=== PATIENT | male | born 1975 | race Caucasian/White ===

== ENCOUNTER 2017-09-30 11:53 | Emergency (ER) | payer SELFPAY ==
[~2017-09-30 11:53] MED LIST: CYCL-36 PO; IBUP800 PO
[2017-09-30 12:03] VITALS: PULSE 107
[2017-09-30] MEDS ORDERED: MORPHINE SULFATE 4 MG/ML INJ ONE (12:09)
[2017-09-30] MEDS ORDERED: MORPHINE SULFATE 4 MG/ML INJ IV PUSH ONE (12:15)
[2017-09-30 12:21] VITALS: BP 170/99; PULSE 118; RESP 28; TEMP 98.4; O2SAT 97
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
[2017-09-30] MEDS ORDERED: ACETAMINOPHEN/HYDROcodone 325 MG/5 MG TAB PO ONE (14:00)
[2017-09-30] MEDS ORDERED: REME45TA PO (14:02)
[2017-09-30] MEDS ORDERED: BUSP10TA PO (14:02)
[2017-09-30] MEDS ORDERED: GABA300C5 PO (14:02)
[2017-09-30] MEDS ORDERED: PERC5TAB12 PO (14:46)
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
[2017-09-30 14:47] VITALS: BP 134/85; PULSE 84; RESP 14; O2SAT 100
[2017-09-30 14:48] VITALS: BP 134/85
== END 2017-09-30 14:59 | disposition home or self-care (01) ==
LOC: NEPE 11:53
DX: S82.62XA Displaced fracture of lateral malleolus of left fibula, initial encounter for closed fracture (principal); W11.XXXA Fall on and from ladder, initial encounter; F31.9 Bipolar disorder, unspecified; Z72.0 Tobacco use
CPT/HCPCS: 29515; 72170; 73552; 73590; 73600; 96374; 99284; E0113; J2270

== ENCOUNTER → 2017-10-10 | Day surgery (SDC) | payer SELFPAY ==
[~2017-10-10] VITALS: Ht 170.2 cm; Wt 85.0 kg
[~2017-10-10] MED LIST changes: +*diphenhydrAMINE HCL 50 MG/ML VIAL PERIprocedural Use ONLY ONE; +*morphine SULFATE 4 MG/ML PERIprocedure ONLY ONE; +BUPIVACAINE/EPINEPHRINE 0.5% PF 30 ML VIAL ONE; +BUSP10TA PO; +CHLORHEXIDINE GLUCONATE 2 % 1 PACK (2 CLOTHS) TOPICAL PRN; +CHLORHEXIDINE GLUCONATE 4% SOLN 120 ML BTL TOPICAL SCH; -CYCL-36 PO; +GABA300C5 PO; +GENTAMICIN SULFATE 80 MG/2 ML VIAL ONE; -IBUP800 PO; +KETOROLAC TROMETHAMINE 30 MG/ML (IVP) VIAL IVP ONE; +LACTATED RINGER'S 1000 ML IV PRN; +METOPROLOL TARTRATE 25 MG TAB PO PRN; +MIDAZOLAM HCL 2 MG/2 ML VIAL ONE; +MORPHINE SULFATE 4 MG/ML INJ IV PUSH PRN; +ONDANSETRON HCL 4 MG/2 ML VIAL IV PUSH PRN; +OXYC1TAB63 PO; +PERC5TAB12 PO; +POVIDONE IODINE 5% (ANTISEPSIS KIT) 4 APPLICATIONS EACH NARE PRN; +REME45TA PO; +SODIUM CHLOR 0.9% 250 ML INJ 250 ML ONE; +SODIUM CHLORID 0.9% 500 ML IV PRN; +SODIUM CHLORIDE 0.9% FLUSH 10 ML FLUSH IV FLUSH PRN; +SODIUM CHLORIDE 0.9% FLUSH 10 ML FLUSH IV FLUSH SCH; +VANCOMYCIN HCL 1000 MG VIAL ONE; +ceFAZolin 2 GM PREMIX 50 ML IV SCH; +oxyCODONE/ACETAMINOPHEN 5 MG/325 MG TAB PO PRN
[2017-10-10 12:49] LABS: AUTOMATED NEUTROPHIL # 6.4 TH/MM3 (1.8-7.7); BASOPHIL # 0.1 TH/MM3 (0-0.2); BASOPHIL % 0.9 % (0.0-2.0); EOSINOPHIL # 0.3 TH/MM3 (0-0.4); EOSINOPHIL % 3.3 % (0.0-4.0); HEMATOCRIT 41.9 % (39.0-51.0); HEMOGLOBIN 14.5 GM/DL (13.0-17.0); LYMPH % 20.5 % (9.0-44.0); MEAN CELL VOLUME 92.3 FL (80.0-100.0); MEAN CORPUSCULAR HGB CONC 34.7 % (32.0-36.0); MEAN PLATELET VOLUME 8.4 FL (7.0-11.0); MONO % 8.3 % (0.0-8.0); MONOCYTE # 0.8 TH/MM3 (0-0.9); PLATELET COUNT 317 TH/MM3 (150-450); RED BLOOD COUNT 4.54 MIL/MM3 (4.50-5.90); RED CELL DISTRIBUTION WIDTH 12.8 % (11.6-17.2); WHITE BLOOD COUNT 9.5 TH/MM3 (4.0-11.0)
[2017-10-10 13:12] LABS: BICARBONATE 25.7 MEQ/L (21.0-32.0); CALCIUM 9.2 MG/DL (8.5-10.1); CREATININE 1.04 MG/DL (0.60-1.30)
--- NOTE | 2017-10-10 16:04 | PD.OP ---
cc: Ciara Krause MD Operative Report Date of Surgery: Oct 10, 2017 Preoperative Diagnosis: Closed left ligamentous bimalleolar ankle fracture Postoperative Diagnosis: Same Procedure: Open reduction internal fixation left ligamentous bimalleolar ankle fracture Open reduction internal fixation left syndesmosis Anesthesia: General Surgeon: Ciara Krause Help Desk Engineer(s): Feng Campoverde Operation and Findings: EBL: 5 cc Specimens: None Complications: None Indications for procedure: Patient is a 41-year-old gentleman who presented to my office after a fall off a ladder with a closed left ligamentous bimalleolar ankle fracture. Radiographs demonstrated almost 8 mm of medial clear space widening with stress view. Recommendation for open reduction internal fixation of his left ankle. Risks of surgery including but not limited to: Infection, nonunion or malunion, hardware malposition or failure, neurovascular injury, persistent ankle pain and/or stiffness, persistent ankle instability, possible need for further surgery, and other unforeseen comp occasions were all discussed with the patient. At this time he has consented to the above- mentioned procedure. Description of procedure: Patient was brought back to the operating room placed supine on operating table with all bony prominences well-padded. General anesthesia then ensued. A tourniquet was placed on the upper thigh and patient was prepped and draped in standard sterile fashion. Preoperative antibiotics were given within 1 hour of incision. The leg was exsanguinated and the tourniquet inflated to 250 mmHg. A lateral based incision was made directly over the distal fibula with sharp dissection to the skin is obtain his tissue. The fracture was immediately encountered and cleared of all soft tissue. This was mildly comminuted and relatively transverse fracture and therefore a lag screw was not able to be placed. A distal fibula plate was placed over the distal fibula and verified to be in appropriate position on AP and lateral radiographs. The fibula was also verified to be well reduced and of appropriate length. The plate was temporarily fixed to the bone with a K wire and a nonlocking cortical screw proximally. This was then affixed distally with locking screws into the distal fibula. At this time radiographs to measure the fracture was well reduced and the plate was in appropriate position. Another nonlocking cortical screw was then placed proximally. At this time, and external rotation stress view was performed and there was significant medial clear space widening and talar tilt while the fracture remained well reduced. At this time it was decided to place a syndesmotic screw to hold the talus well reduced at the ankle. The syndesmosis was reduced and the ankle was held in maximum dorsiflexion and a screw was placed lateral to medial through the fibula and into the distal tibia parallel to the joint surface. This was initially drilled, measured and an appropriate length screw then placed. Another external rotation stress was performed at the ankle and there was no significant medial clear space widening or talar tilt. Final radiographs were obtained which demonstrate the fracture was well reduced and the fibula was appropriate length, and the hardware was in appropriate position on both AP and lateral radiographs. The wound was thoroughly irrigated with normal saline laden with gentamicin. The subcutaneous tissue was closed with interrupted Vicryl sutures and the skin closed with nylon. Half percent Marcaine with epinephrine was then used as local anesthetic. The tourniquet was deflated and sterile dressing and splint applied. Patient was awoken from general anesthesia without complication. Disposition: Patient will be nonweightbearing to the left lower extremity in a splint until follow-up. Ciara Krause MD Oct 10, 2017 16:04
[2017-10-10 16:40] VITALS: BP 149/91; PULSE 84; RESP 20; TEMP 97.7; O2SAT 94
--- NOTE | 2017-10-10 22:55 | RADRPT ---
EXAM DATE: 10/10/2017 10:52 PM EDT AGE/SEX: 41 years / Male INDICATIONS: Left ankle fracture. ORIF. CLINICAL DATA: This is the patient's initial encounter. Patient reports that signs and symptoms have been present for 1 day and indicates a pain score of Nonresponsive. MEDICAL/SURGICAL HISTORY: Non-responsive. Non-responsive. [place] [facility] [place]AP&L[place]30/[place]. . FINDINGS: Spot images taken in the operating room during a procedure documents placement of a lateral distal fi bular sideplate with interlocking screws and a single syndesmotic screw. There is improved anatomic a lignment. Ankle mortise is intact. CONCLUSION: Improved alignment following distal fibula ORIF. Electronically signed by: Matthew Soriano MD 10/10/2017 10:54 PM EDT
--- NOTE | 2017-10-11 15:27 | EKG ---
Date Performed: 10/10/2017 Time Performed: 12:37:45 PTAGE: 41 years EKG: Sinus rhythm NORMAL ECG NO PREVIOUS TRACING DOCTOR: Jesus Stewart Interpretating Date/Time 10/11/2017 15:24:59
== END | disposition home or self-care (01) ==
LOC: HSDC 11:16
PROVIDERS: ATTEND Orthopaedic Surgery Orthopaedic Surgery of the Spine
DX: S82.842A Displaced bimalleolar fracture of left lower leg, initial encounter for closed fracture (principal); S93.432A Sprain of tibiofibular ligament of left ankle, initial encounter; W11.XXXA Fall on and from ladder, initial encounter; Z01.810 Encounter for preprocedural cardiovascular examination
CPT/HCPCS: 01480; 27814; 27829; 73600; 76000; 80048; 85025; 85730; 93005; C1713; J1200; J1580; J1885; J2250; J2270; J3010; J3370; J7050

== ENCOUNTER 2017-11-21 08:17 | Inpatient (IN) ==
[2017-11-21] MEDS ORDERED: Piperacil/Tazo 4.5 GM Premix 4.5 GM/100 ML BAG IV.SIG STA (09:03)
[2017-11-21] MEDS ORDERED: Vancomycin Inj 1,000 MG in Sodium Chlor 0.9% Inj 250 ML IV.SIG STA (09:03)
[2017-11-21] MEDS ORDERED: Morphine Sulfate Inj 8 MG/ML Vial IV.PUSH ONE (09:03)
--- NOTE | 2017-11-21 09:52 | XR ---
EXAM DATE: 11/21/2017 9:28 AM EDT AGE/SEX: 41 years / Male INDICATIONS: . Short of breath and fever. CLINICAL DATA: This is the patient's initial encounter. Patient reports that signs and symptoms have been present for 1 day and indicates a pain score of 0/10. MEDICAL/SURGICAL HISTORY: None. . Left ankle ORIF COMPARISON: No prior exams available for comparison. FINDINGS: A single AP view of the chest demonstrates the lungs to be symmetrically aerated without evidence of mass, infiltrate or effusion. The cardiomediastinal contours are unremarkable. Osseous structures a re intact. CONCLUSION: 1. No acute cardiopulmonary disease. Electronically signed by: Almas Brewer MD 11/21/2017 9:51 AM EDT
--- NOTE | 2017-11-21 09:55 | XR ---
EXAM DATE: 11/21/2017 9:27 AM EDT AGE/SEX: 41 years / Male INDICATIONS: Pain and swelling in left ankle since surgery one month ago. CLINICAL DATA: This is the patient's initial encounter. Patient reports that signs and symptoms have been present for 1 month and indicates a pain score of 9/10. MEDICAL/SURGICAL HISTORY: None. . Left ankle ORIF COMPARISON: [facility] – [place], [place]KLE LEFT COMPLETE ([id number]), 11/02/2017. . FINDINGS: Stable left distal fibular ORIF hardware. No perihardware lucency or evidence for hardware failure. C ontinued bony remodeling of the lateral malleolus. No interval new fracture or bony destruction. Soft tissue swelling overlying the lateral malleolus. CONCLUSION: 1. Persistent soft tissue swelling overlying lateral malleolus. 2. Stable fixation hardware with interval bony remodeling of the lateral malleolus. 3. No interval new fracture or bony destruction. Electronically signed by: Almas Brewer MD 11/21/2017 9:54 AM EDT
[2017-11-21 10:23] LABS: Baso # (Auto) 0.1 th/mm3 (0.0-0.2); Eos # (Auto) 0.3 th/mm3 (0.0-0.4); Eos % (Auto) 2.6 % (0.0-4.0); Hematocrit 36.9 % (39.0-51.0); Hemoglobin 13.2 gm/dL (13.0-17.0); Lymph # (Auto) 1.8 th/mm3 (1.0-4.8); Lymph % (Auto) 18.3 % (9.0-44.0); Mean Corpuscular HGB Conc 35.8 % (32.0-36.0); Mean Corpuscular Hemoglobin 32.4 pg (27.0-34.0); Mean Corpuscular Volume 90.4 fL (80.0-100.0); Mean Platelet Volume 8.2 fL (7.0-11.0); Mono % (Auto) 9.9 % (0.0-8.0); Neut # (Auto) 6.7 th/mm3 (1.8-7.7); Neut % (Auto) 68.2 % (16.0-70.0); Platelet Count 387 th/mm3 (150-450); Red Blood Count 4.08 mil/mm3 (4.50-5.90); Red Cell Distribution Width 13.2 % (11.6-17.2); White Blood Count 9.8 th/mm3 (4.0-11.0)
[2017-11-21 10:33] LABS: Activated Partial Thrombo Time 31.3 sec (24.3-30.1); Prothrombin Time 10.6 sec (9.8-11.6)
[2017-11-21 10:44] LABS: Albumin 3.5 g/dL (3.4-5.0); Anion Gap 11 meq/L (5-15); Aspartate Aminotransferase 12 U/L (15-37); Blood Urea Nitrogen 16 mg/dL (7-18); Calcium 9.5 mg/dL (8.5-10.1); Carbon Dioxide 22.8 meq/L (21.0-32.0); Chloride 105 meq/L (98-107); Glomerular Filtration Rate 78 mL/min (>89); Glucose,Random 90 mg/dL (74-106); Potassium 4.1 meq/L (3.5-5.1); Sodium 139 meq/L (136-145)
[2017-11-21 10:45] LABS: Alanine Aminotransferase 26 U/L (12-78)
[2017-11-21 10:47] LABS: Alkaline Phosphatase 121 U/L (45-117); Total Protein 8.1 g/dL (6.4-8.2)
--- NOTE | 2017-11-21 11:40 | ED ---
HPI General Chief complaint: Skin/Abscess/Foreign Body Stated complaint: Left foot complaint Time Seen by Provider: 11/21/17 08:55 Source: patient and old records reviewed Mode of arrival: ambulatory History of Present Illness HPI narrative: Patient is a 41-year-old male with past medical history significant for left ankle fracture status post ORIF with a subsequent infection of her his orthopedic surgeon's office a few days ago and was started on antibiotics. Patient does not appear to be compliant after discussing with his senior quality assurance specialist it appears that he left from her office AGAINST MEDICAL ADVICE removed his cast and probably did not start taking the antibiotics. Patient is here because for the past 3 days he has been having increased swelling redness and drainage from the surgical incisions of his left ankle. Denies any fever but admits to chills. No other complaints. Onset (ago): day(s) Tetanus Immunization: <5 Years Location: L foot (Left ankle) and R foot Severity: moderate Severity scale (1-10): 5 Quality: aching Pain Consistency: constant Relieving factors: none Exacerbating factors: palpation and movement Associated symptoms: chills Related Data Home Medications Medication Instructions Recorded Confirmed gabapentin 600 mg PO TID 11/21/17 11/21/17 Allergies Allergy/AdvReac Type Severity Reaction Status Date / Time bee venom protein (honey bee) Allergy Severe Anaphylaxis Verified 10/09/17 14:46 onion Allergy Severe Anaphylaxis Verified 10/09/17 14:46 No Known Allergies AdvReac Unknown Uncoded 10/09/17 14:38 Review of Systems ROS Unobtainable All other systems reviewed negative except as stated in HPI Constitutional Denies fever(s) Eyes Denies change in vision ENT Denies headache(s) and Denies nasal congestion Cardiovascular Denies chest pain Respiratory Denies dyspnea Gastrointestinal Denies abdominal pain Genitourinary Denies difficulty urinating Musculoskeletal Denies myalgias, Reports arthralgias and Reports joint swelling (Left ankle) Integumentary/Breasts Reports rash Comments: Infected surgical incision of left lateral ankle with drainage from both poles of the incision. Erythema surrounding suggestive of cellulitis. Marked tenderness to palpation Neurologic Reports system reviewed and no additional complaints, except as docu and Denies headache(s) Psychiatric Denies depression Endocrine Denies polyuria Hematologic/Lymphatic Denies easy bruising PMFSH Surgical History Surgical History Hx of Achilles tendon repair (Acute) Status post surgical manipulation of ankle joint (Acute) Social History Social History Substance History: No History of Abuse Second Hand Smoke Exposure: Yes Smoking Status: Current some day smoker Tobacco Type: Cigarettes How Often Do You Have a Drink Containing Alcohol: Never Recent Travel in [facility] within the Last 8 Weeks: No Recent Out of Country Travel within the Last 8 Weeks: No Immunization History Tetanus Immunization: <5 Years Exam HENPA Head: normocephalic and atraumatic Nose: no nasal discharge and no epistaxis Mouth: moist mucous membranes Eyes Sclera: normal sclerae Pupils: PERRL Neck Neck: trachea midline and no JVD Resp Effort & Inspection: no use of accessory muscles Auscultation: clear to auscultation bilaterally Cardio Rate: regular rate Rhythm: regular rhythm Heart Sounds: no murmurs GI Inspection: non-distended Palpation: soft, no hepatosplenomegaly and nontender Skin Other: Cellulitis of left lateral ankle and infected surgical incision Neuro General: alert and awake Cranial Nerves: other Speech: speech normal Motor: no movement abnormalities noted Extrem General: normal to inspection, no clubbing, no cyanosis and no edema Psych Mood: congruent mood Affect: normal affect Judgment: judgment good Course Reevaluation(s) Reevaluation #1: Patient is resting comfortably in no distress. Hemodynamically stable alert and oriented. Time: 11:39 Consultations Consultation #1: Dr. Krause orthopedic surgeon recommended admission IV antibiotics and possible washout in the OR. Initial Documented Vital Signs Temperature 98.2 F 11/21/17 08:33 Pulse Rate 100 H 11/21/17 08:33 Respiratory Rate 16 11/21/17 08:33 Blood Pressure 150/91 H 11/21/17 08:33 Pulse Oximetry 99 11/21/17 08:33 Last Documented Vital Signs Temperature 97.9 F 11/21/17 16:00 Pulse Rate 85 11/21/17 16:00 Respiratory Rate 20 11/21/17 16:00 Blood Pressure 158/81 H 11/21/17 16:00 Pulse Oximetry 99 11/21/17 16:00 Critical Care Time Critical Care Time: No Medical Decision Making Lab Data Lab results reviewed: Yes I reviewed the patient's lab results. Lab results narrative: Patient with infected surgical incision of left lateral ankle which is set of ORIF with possible infection of the prosthetics. Wound and blood will culture was started on broad-spectrum antibiotics. His presentation was discussed with the orthopedic surgeon who recommended admission for orthopedic consultation likely washout in the OR. No leukocytosis. He does have a markedly elevated ESR at 58. Not appearing septic. Analgesia provided admitted for further evaluation and treatment. Result diagrams: 11/21/17 09:57 11/21/17 09:57 Lab Results 11/21/17 11/21/17 11/21/17 Range/Units 09:57 09:57 09:57 WBC 9.8 (4.0-11.0) th/mm3 RBC 4.08 L (4.50-5.90) mil/mm3 Hgb 13.2 (13.0-17.0) gm/dL Hct 36.9 L (39.0-51.0) % MCV 90.4 (80.0-100.0) fL MCH 32.4 (27.0-34.0) pg MCHC 35.8 (32.0-36.0) % RDW 13.2 (11.6-17.2) % Plt Count 387 (150-450) th/mm3 MPV 8.2 (7.0-11.0) fL Neut % (Auto) 68.2 (16.0-70.0) % Lymph % (Auto) 18.3 (9.0-44.0) % Barry % (Auto) 9.9 H (0.0-8.0) % Eos % (Auto) 2.6 (0.0-4.0) % Baso % (Auto) 1.0 (0.0-2.0) % Neut # (Auto) 6.7 (1.8-7.7) th/mm3 Lymph # (Auto) 1.8 (1.0-4.8) th/mm3 Barry # (Auto) 1.0 H (0.0-0.9) th/mm3 Eos # (Auto) 0.3 (0.0-0.4) th/mm3 Baso # (Auto) 0.1 (0.0-0.2) th/mm3 WBC Differential . Differential Comment Auto diff final ESR (0-15) mm/hr PT 10.6 (9.8-11.6) sec INR 1.0 Ratio APTT 31.3 H (24.3-30.1) sec Sodium 139 (136-145) meq/L Potassium 4.1 (3.5-5.1) meq/L Chloride 105 (98-107) meq/L Carbon Dioxide 22.8 (21.0-32.0) meq/L Anion Gap 11 (5-15) meq/L BUN 16 (7-18) mg/dL Creatinine 1.04 (0.60-1.30) mg/dL Estimated GFR 78 L (>89) mL/min Random Glucose 90 (74-106) mg/dL Lactic Acid (0.4-2.0) mmol/L Calcium 9.5 (8.5-10.1) mg/dL Total Bilirubin 0.2 (0.2-1.0) mg/dL AST 12 L (15-37) U/L ALT 26 (12-78) U/L Alkaline Phosphatase 121 H (45-117) U/L Total Protein 8.1 (6.4-8.2) g/dL Albumin 3.5 (3.4-5.0) g/dL 11/21/17 11/21/17 Range/Units 09:57 10:38 WBC (4.0-11.0) th/mm3 RBC (4.50-5.90) mil/mm3 Hgb (13.0-17.0) gm/dL Hct (39.0-51.0) % MCV (80.0-100.0) fL MCH (27.0-34.0) pg MCHC (32.0-36.0) % RDW (11.6-17.2) % Plt Count (150-450) th/mm3 MPV (7.0-11.0) fL Neut % (Auto) (16.0-70.0) % Lymph % (Auto) (9.0-44.0) % Barry % (Auto) (0.0-8.0) % Eos % (Auto) (0.0-4.0) % Baso % (Auto) (0.0-2.0) % Neut # (Auto) (1.8-7.7) th/mm3 Lymph # (Auto) (1.0-4.8) th/mm3 Barry # (Auto) (0.0-0.9) th/mm3 Eos # (Auto) (0.0-0.4) th/mm3 Baso # (Auto) (0.0-0.2) th/mm3 WBC Differential Differential Comment ESR 58 H (0-15) mm/hr PT (9.8-11.6) sec INR Ratio APTT (24.3-30.1) sec Sodium (136-145) meq/L Potassium (3.5-5.1) meq/L Chloride (98-107) meq/L Carbon Dioxide (21.0-32.0) meq/L Anion Gap (5-15) meq/L BUN (7-18) mg/dL Creatinine (0.60-1.30) mg/dL Estimated GFR (>89) mL/min Random Glucose (74-106) mg/dL Lactic Acid 0.8 (0.4-2.0) mmol/L Calcium (8.5-10.1) mg/dL Total Bilirubin (0.2-1.0) mg/dL AST (15-37) U/L ALT (12-78) U/L Alkaline Phosphatase (45-117) U/L Total Protein (6.4-8.2) g/dL Albumin (3.4-5.0) g/dL Imaging Data Attestation: I personally reviewed and interpreted this imaging study as follows : Radiologist's impression: Ankle X-Ray 11/21/17 09:03 CONCLUSION: 1. Persistent soft tissue swelling overlying lateral malleolus. 2. Stable fixation hardware with interval bony remodeling of the lateral malleolus. 3. No interval new fracture or bony destruction. Chest X-Ray 11/21/17 09:04 CONCLUSION: 1. No acute cardiopulmonary disease. Discharge Plan Discharge Disposition Patient Disposition: 30 Still Patient Discharge Condition Condition: Stable Discharge Details Diagnosis: Cellulitis of left ankle, Infected surgical wound Physicians Team ED Provider: Mitchell Avila Primary Care Provider: Primary Care Shikha Castelan Attending Provider: Andrés Mendez Other Providers: Fito Luevano ; Kvng Adan Discharge Interventions Interventions: ED Discharge Assessment Last Done: 11/21/17 15:32 Status ED Status: Left Department Discharge Information Discharge Date/Time: 11/21/17 15:33
[2017-11-21] MEDS ORDERED: Bisacodyl 10 MG Supp RECTAL PRN (13:23)
[2017-11-21] MEDS ORDERED: Morphine Inj 4 MG/ML Vial IV.PUSH ONE ×2 (14:54→19:45)
[2017-11-21] MEDS ORDERED: Vancomycin Consult Pharmacy 1 EACH OTHER SCH (17:58)
[2017-11-21] MEDS ORDERED: Acetaminophen 325 MG Tablet PO PRN (17:59)
--- NOTE | 2017-11-21 18:27 | P.HP ---
History of Present Illness Primary Care Physician: No Primary Care Physician Chief Complaint: Left ankle swelling, pain History of Present Illness: Mr. Arredondo is a 41 year old male with a recent left ankle injury s/p ORIF left ankle who presents to the ED due to worsening swelling, pain and drainage of the left ankle. Patient injured his left ankle and subsequently underwent ORIF about a month ago. He had a cast on and due to swelling, he cut the cast off. During a follow up visit with his Orthopedic surgeon, patient's pain was significant and had some disagreement with the surgeon. He later on came to the ED and was discharged on Keflex and Bactrim for two weeks. Although he had some improvement, his symptoms deteriorated again after abx course. He reports significant drainage, swelling and pain. He also reports subjective fever, chills. He denies any changes in bowel or bladder habits. No chest pain, no shortness of breath. No cough, abdominal pain. - Diagnosis (1) Cellulitis of left ankle (2) Infected surgical wound (3) Bipolar disease, chronic Inpatient Certification: I certify that the inpatient services were ordered in accordance with Medicare regulations governing the order. This includes certification that hospital inpatient services are reasonable and necessary and in the case of services not specified as inpatient-only under 42 CFR 419.22(n), that they are appropriately provided as inpatient services in accordance to with the 2-midnight benchmark under 43 CFR 412.3(e) Estimated Total Length of Stay (Days): 3 Plans for Post Hospital Care: Home Review of Systems All other systems reviewed negative except as stated in [facility] - History History Provided By: Patient - Surgical History Surgical History: Surgical History (Last Reviewed 11/22/17 @ 11:20 by Eric Membreno) Hx of Achilles tendon repair Status post surgical manipulation of ankle joint - Tobacco History Second Hand Smoke Exposure: Yes Tobacco Use In Past 30 Days: Yes Smoking Status: Current some day smoker Tobacco Type: Cigarettes - Alcohol History How Often Do You Have a Drink Containing Alcohol: Never - Substance Use History Substance History: No History of Abuse - Travel History Recent Travel in the [place] Within the Last 8 Weeks: No Recent Travel Out of the Country Within the Last 8 Weeks: No - Immunization History Tetanus Immunization: <5 Years Medications and Allergies Active Medications: Active Medications Acetaminophen (Tylenol) 650 mg PO Q4H PRN PRN Reason: Fever, headache, pain 1-4 Al Hydroxide/Mg Hydroxide (Milk Of Magnesia Liq) 30 ml PO Q12H PRN PRN Reason: Mild Constipation Bisacodyl (Dulcolax Supp) 10 mg RECTAL DAILY PRN PRN Reason: SEVERE CONSITIPATION Pharmacy Profile Note (Vancomycin Consult Pharmacy) 0 mls @ 0 mls/hr OTHER UNSCH [facility] Piperacillin/Tazobactam/Dextrose (Zosyn 4.5 Gm Premix) 4.5 gm in 100 mls @ 200 mls/hr IV.SIG Q6H [facility] Lactulose (Lactulose Liq) 30 ml PO DAILY PRN PRN Reason: SEVERE CONSITIPATION Ondansetron HCl (Zofran Odt) 4 mg PO Q6H PRN PRN Reason: NAUSEA OR VOMITING Oxycodone/Acetaminophen (Percocet 7.5/325 Mg) 1 tab PO Q6H PRN PRN Reason: Pain 5-10 Sennosides (Senokot) 17.2 mg PO Q12H PRN PRN Reason: Moderate Constipation Temazepam (Restoril) 15 mg PO HS PRN PRN Reason: INSOMNIA Allergies Allergy/AdvReac Type Severity Reaction Status Date / Time bee venom protein (honey bee) Allergy Severe Anaphylaxis Verified 10/09/17 14:46 onion Allergy Severe Anaphylaxis Verified 10/09/17 14:46 No Known Allergies AdvReac Unknown Uncoded 10/09/17 14:38 Home Medications Medication Instructions Recorded Confirmed Type gabapentin 600 mg PO TID 11/21/17 11/21/17 History Exam Vital signs: Vital Signs 11/21/17 08:33 11/21/17 09:04 11/21/17 11:57 Temperature 98.2 F Pulse Rate 100 H 90 Respiratory Rate 16 18 Blood Pressure 150/91 H Pulse Oximetry 99 11/21/17 14:34 11/21/17 16:00 Temperature 97.9 F Pulse Rate 96 H 85 Respiratory Rate 17 20 Blood Pressure 137/87 158/81 H Pulse Oximetry 100 99 Intake & Output 11/20/17 11/21/17 11/21/17 18:59 06:59 18:59 Weight 90.718 kg Narrative: GENERAL: This is a well-nourished, well-developed patient, in no apparent distress. SKIN: No rashes, ecchymoses or lesions. Warm and dry. HEAD: Atraumatic. Normocephalic. No temporal or scalp tenderness. EYES: Pupils equal round and reactive. No injection or drainage. ENT: Nose without bleeding, purulent drainage or septal hematoma. Airway patent. NECK: Trachea midline. No lymphadenopathy. Supple, nontender, no meningeal signs. CARDIOVASCULAR: Regular rate and rhythm without murmurs, gallops, or rubs. No JVD. RESPIRATORY: Clear to auscultation. Breath sounds equal bilaterally. No wheezes , rales, or rhonchi. GASTROINTESTINAL: Abdomen soft, non-tender, nondistended. No guarding. MUSCULOSKELETAL: Extremities without clubbing. Left ankle is exquisitely tender to palpation. Ankle are is covered with dressing. Tenderness to palpation extends all the way to below knee. NEUROLOGICAL: Awake and alert. Cranial nerves II through XII intact. No focal neurological deficits. Normal speech. Results - Labs CBC & Chem 7: 11/22/17 07:04 11/22/17 07:04 Labs: Laboratory Results - last 24 hr 11/21/17 11/21/17 11/21/17 09:57 09:57 09:57 WBC 9.8 RBC 4.08 L Hgb 13.2 Hct 36.9 L MCV 90.4 MCH 32.4 MCHC 35.8 RDW 13.2 Plt Count 387 MPV 8.2 Neut % (Auto) 68.2 Lymph % (Auto) 18.3 [place] % (Auto) 9.9 H Eos % (Auto) 2.6 Baso % (Auto) 1.0 Neut # (Auto) 6.7 Lymph # (Auto) 1.8 [place] # (Auto) 1.0 H Eos # (Auto) 0.3 Baso # (Auto) 0.1 WBC Differential . Differential Comment Auto diff final ESR PT 10.6 INR 1.0 APTT 31.3 H Sodium 139 Potassium 4.1 Chloride 105 Carbon Dioxide 22.8 Anion Gap 11 BUN 16 Creatinine 1.04 Estimated GFR 78 L Random Glucose 90 Lactic Acid Calcium 9.5 Total Bilirubin 0.2 AST 12 L ALT 26 Alkaline Phosphatase 121 H Total Protein 8.1 Albumin 3.5 11/21/17 11/21/17 09:57 10:38 WBC RBC Hgb Hct MCV MCH MCHC RDW Plt Count MPV Neut % (Auto) Lymph % (Auto) [place] % (Auto) Eos % (Auto) Baso % (Auto) Neut # (Auto) Lymph # (Auto) [place] # (Auto) Eos # (Auto) Baso # (Auto) WBC Differential Differential Comment ESR 58 H PT INR APTT Sodium Potassium Chloride Carbon Dioxide Anion Gap BUN Creatinine Estimated GFR Random Glucose Lactic Acid 0.8 Calcium Total Bilirubin AST ALT Alkaline Phosphatase Total Protein Albumin - Imaging Impressions Ankle X-Ray 11/21/17 09:03 CONCLUSION: 1. Persistent soft tissue swelling overlying lateral malleolus. 2. Stable fixation hardware with interval bony remodeling of the lateral malleolus. 3. No interval new fracture or bony destruction. Chest X-Ray 11/21/17 09:04 CONCLUSION: 1. No acute cardiopulmonary disease. Caprini VTE Risk Assessment Caprini VTE Risk Assessment: Moderate/High Risk (score >= 2) Caprini Risk Assessment Model: Point Value = 1 Point Value = 2 Point Value = 3 Point Value = 5 Age 41-60 Minor surgery BMI > 25 kg/m2 Swollen legs Varicose veins or History of unexplained or recurrent spontaneous Oral contraceptives or hormone replacement Sepsis (< 1 month) Serious lung disease, including pneumonia (< 1 month) Abnormal pulmonary function Acute myocardial infarction Congestive heart failure (< 1 month) History of inflammatory bowel disease Medical patient at bed rest Age 61-74 Arthroscopic surgery Major open surgery (> 45 min) Laparoscopic surgery (> 45 min) Malignancy Confined to bed (> 72 hours) Immobilizing plaster cast Central venous access Age >= 75 History of VTE Family history of VTE Factor V Leiden Prothrombin [id number] Lupus anticoagulant Anticardiolipin antibodies Elevated serum homocysteine Heparin-induced thrombocytopenia Other congenital or acquired thrombophilia Stroke (< 1 month) Elective arthroplasty Hip, pelvis, or leg fracture Acute spinal cord injury (< 1 month) Prophylaxis Regimen: Total Risk Factor Score Risk Level Prophylaxis Regimen 0-1 Low Early ambulation 2 Moderate Order ONE of the following: *Sequential Compression Device (SCD) *Heparin 5000 units SQ BID 3-4 Higher Order ONE of the following medications: *Heparin 5000 units SQ TID *Enoxaparin/Lovenox 40 mg SQ daily (WT < 150 kg, CrCl > 30 mL/min) *Enoxaparin/Lovenox 30 mg SQ daily (WT < 150 kg, CrCl > 10-29 mL/min) *Enoxaparin/Lovenox 30 mg SQ BID (WT < 150 kg, CrCl > 30 mL/min) AND/OR *Sequential Compression Device (SCD) 5 or more Highest Order ONE of the following medications: *Heparin 5000 units SQ TID (Preferred with Epidurals) *Enoxaparin/Lovenox 40 mg SQ daily (WT < 150 kg, CrCl > 30 mL/min) *Enoxaparin/Lovenox 30 mg SQ daily (WT < 150 kg, CrCl > 10-29 mL/min) *Enoxaparin/Lovenox 30 mg SQ BID (WT < 150 kg, CrCl > 30 mL/min) AND *Sequential Compression Device (SCD) Assessment and Plan - Assessment (1) Cellulitis of left ankle Code(s): L03.116 - Cellulitis of left lower limb Status: Acute (2) Infected surgical wound Code(s): T81.4XXA - Infection following a procedure, initial encounter Status : Acute (3) Bipolar disease, chronic Code(s): F31.9 - Bipolar disorder, unspecified Status: Acute - Plan Mr. Arredondo is a 41 year old male with a recent ORIF left ankle who presents to the ED due to worsening edema, tenderness, drainage as well as subjective fever , chills. He used Keflex and Bactrim for two weeks only to have symptoms return. Left ankle cellulitis Probable hardware infection of left ankle - Cultures pending. Will empirically cover with Vanc/Zosyn - Orthopedic surgery consulted. ID consult placed as well. - Acetaminophen, Percocet and Morphine PRN for pain. Bipolar disorder - Gabapentin 900mg TID. Full code. Ambulation. (2) Infected surgical wound Qualifiers: Encounter type: sequela Qualified Code(s): T81.4XXS - Infection following a procedure, sequela
[2017-11-21] MEDS: Piperacil/Tazo 4.5 GM Premix 4.5 GM/100 ML BAG IV.SIG SCH (20:24)
[2017-11-21] MEDS ORDERED: Vancomycin Inj 1,800 MG in Sodium Chlor 0.9% Inj 500 ML IV.SIG ONE (22:00)
[2017-11-22] MEDS: Piperacil/Tazo 4.5 GM Premix 4.5 GM/100 ML BAG IV.SIG SCH ×4 (01:54→20:48)
--- NOTE | 2017-11-22 07:11 | P.PNOP ---
Subjective Interval history: Previous surgery to left distal fibula with syndesmosis repair. Readmitted due to wound over incision. Physical Exam Vital signs: Vital Signs 11/21/17 08:33 11/21/17 09:04 11/21/17 11:57 Temperature 98.2 F Pulse Rate 100 H 90 Respiratory Rate 16 18 Blood Pressure 150/91 H Pulse Oximetry 99 11/21/17 14:34 11/21/17 16:00 11/21/17 20:00 Temperature 97.9 F 98 F Pulse Rate 96 H 85 83 Respiratory Rate 17 20 18 Blood Pressure 137/87 158/81 H 141/98 H Pulse Oximetry 100 99 96 11/22/17 00:00 Temperature 98.2 F Pulse Rate 85 Respiratory Rate 18 Blood Pressure 138/81 Pulse Oximetry 98 Intake & Output 11/21/17 11/22/17 11/22/17 18:59 06:59 18:59 Intake Total 581 / 581 200 / 200 Balance 581 / 581 200 / 200 Weight 90.718 kg Intake: IV 200 / 200 Zosyn 4.5 GM Premix 4.5 gm In 200 / 200 100 ml @ 200 mls/hr IV.SIG Q6H [facility] Rx#:[id number] Oral 581 / 581 Other: # Bowel Movements 0 Narrative: Left lower extremity: No pain with hip or knee range of motion. Examination of the ankle reveals wound over an incision approximately 1 cm with mild erythema surrounding. There is mild drainage is slightly purulent. He has intact distal pulses with good capillary refills Results - Labs CBC & Chem 7: 11/21/17 09:57 11/21/17 09:57 Laboratory Results - last 24 hr 11/21/17 11/21/17 11/21/17 09:57 09:57 09:57 WBC 9.8 RBC 4.08 L Hgb 13.2 Hct 36.9 L MCV 90.4 MCH 32.4 MCHC 35.8 RDW 13.2 Plt Count 387 MPV 8.2 Neut % (Auto) 68.2 Lymph % (Auto) 18.3 [place] % (Auto) 9.9 H Eos % (Auto) 2.6 Baso % (Auto) 1.0 Neut # (Auto) 6.7 Lymph # (Auto) 1.8 [place] # (Auto) 1.0 H Eos # (Auto) 0.3 Baso # (Auto) 0.1 WBC Differential . Differential Comment Auto diff final ESR PT 10.6 INR 1.0 APTT 31.3 H Sodium 139 Potassium 4.1 Chloride 105 Carbon Dioxide 22.8 Anion Gap 11 BUN 16 Creatinine 1.04 Estimated GFR 78 L Random Glucose 90 Lactic Acid Calcium 9.5 Total Bilirubin 0.2 AST 12 L ALT 26 Alkaline Phosphatase 121 H Total Protein 8.1 Albumin 3.5 11/21/17 11/21/17 09:57 10:38 WBC RBC Hgb Hct MCV MCH MCHC RDW Plt Count MPV Neut % (Auto) Lymph % (Auto) [place] % (Auto) Eos % (Auto) Baso % (Auto) Neut # (Auto) Lymph # (Auto) [place] # (Auto) Eos # (Auto) Baso # (Auto) WBC Differential Differential Comment ESR 58 H PT INR APTT Sodium Potassium Chloride Carbon Dioxide Anion Gap BUN Creatinine Estimated GFR Random Glucose Lactic Acid 0.8 Calcium Total Bilirubin AST ALT Alkaline Phosphatase Total Protein Albumin Microbiology 11/21/17 11:49 Wound - Foot Gram Stain - Final - Imaging Impressions Ankle X-Ray 11/21/17 09:03 CONCLUSION: 1. Persistent soft tissue swelling overlying lateral malleolus. 2. Stable fixation hardware with interval bony remodeling of the lateral malleolus. 3. No interval new fracture or bony destruction. Chest X-Ray 11/21/17 09:04 CONCLUSION: 1. No acute cardiopulmonary disease. Assessment and Plan - Assessment and Plan Left postoperative infection of ankle N.p.o. Surgery this morning for irrigation debridement Sign consents
[2017-11-22] MEDS: Gabapentin 300 MG Capsule PO SCH ×3 (08:05→17:45)
[2017-11-22 09:06] LABS: Baso # (Auto) 0.1 th/mm3 (0.0-0.2); Baso % (Auto) 1.1 % (0.0-2.0); Eos # (Auto) 0.4 th/mm3 (0.0-0.4); Eos % (Auto) 5.7 % (0.0-4.0); Hematocrit 39.5 % (39.0-51.0); Hemoglobin 13.5 gm/dL (13.0-17.0); Lymph # (Auto) 1.2 th/mm3 (1.0-4.8); Lymph % (Auto) 18.1 % (9.0-44.0); Mean Corpuscular Hemoglobin 31.7 pg (27.0-34.0); Mean Corpuscular Volume 93.1 fL (80.0-100.0); Mean Platelet Volume 8.1 fL (7.0-11.0); Mono # (Auto) 0.8 th/mm3 (0.0-0.9); Mono % (Auto) 11.9 % (0.0-8.0); Neut # (Auto) 4.2 th/mm3 (1.8-7.7); Neut % (Auto) 63.2 % (16.0-70.0); Platelet Count 421 th/mm3 (150-450); Red Blood Count 4.25 mil/mm3 (4.50-5.90); Red Cell Distribution Width 13.1 % (11.6-17.2); White Blood Count 6.7 th/mm3 (4.0-11.0)
[2017-11-22 09:30] LABS: Calcium 9.5 mg/dL (8.5-10.1); Carbon Dioxide 24.6 meq/L (21.0-32.0); Potassium 4.1 meq/L (3.5-5.1)
[2017-11-22] MEDS ORDERED: fentaNYL Citrate Inj 100 MCG/2 ML Ampul ONE (09:34)
[2017-11-22] MEDS ORDERED: Famotidine PF Inj 20 MG/2 ML Vial ONE (09:35)
[2017-11-22] MEDS ORDERED: Ketamine Inj 50 MG/5 ML Syringe IV.PUSH ONE (09:47)
--- NOTE | 2017-11-22 10:11 | P.PN ---
Subjective Interval history: Follow up for post-surgical complication of left ankle. Patient is doing well. Pain is much better controlled. No fever, chills. No CP, SOB. Going for surgical I&D today. Physical Exam Vital signs: Vital Signs 11/21/17 11:57 11/21/17 14:34 11/21/17 16:00 Temperature 97.9 F Pulse Rate 96 H 85 Respiratory Rate 18 17 20 Blood Pressure 137/87 158/81 H Pulse Oximetry 100 99 11/21/17 20:00 11/22/17 00:00 11/22/17 04:00 Temperature 98 F 98.2 F 98.2 F Pulse Rate 83 85 79 Respiratory Rate 18 18 18 Blood Pressure 141/98 H 138/81 138/92 H Pulse Oximetry 96 98 96 11/22/17 08:00 Temperature Pulse Rate Respiratory Rate Blood Pressure Pulse Oximetry 96 Intake & Output 11/21/17 11/22/17 11/22/17 18:59 06:59 18:59 Intake Total 581 / 581 200 / 200 Balance 581 / 581 200 / 200 Weight 90.718 kg 90.718 kg Intake: IV 200 / 200 Zosyn 4.5 GM Premix 4.5 gm In 200 / 200 100 ml @ 200 mls/hr IV.SIG Q6H [facility] Rx#:[id number] Oral 581 / 581 Other: # Voids 3 # Bowel Movements 0 Narrative: GENERAL: Alert, Oriented x 3, NAD. SKIN: Warm and dry. HEAD: Normocephalic. EYES: No scleral icterus. No injection or drainage. NECK: Supple, trachea midline. No JVD or lymphadenopathy. CARDIOVASCULAR: Regular rate and rhythm without murmurs, gallops, or rubs. RESPIRATORY: Breath sounds equal bilaterally. No accessory muscle use. GASTROINTESTINAL: Abdomen soft, non-tender, nondistended. MUSCULOSKELETAL: No cyanosis, or edema. Left ankle is tender to palpation. However, above ankle tenderness much improved. BACK: Nontender without obvious deformity. No CVA tenderness. Results - Labs CBC & Chem 7: 11/22/17 07:04 11/22/17 07:04 Laboratory Results - last 24 hr 11/21/17 11/21/17 11/21/17 09:57 09:57 09:57 WBC 9.8 RBC 4.08 L Hgb 13.2 Hct 36.9 L MCV 90.4 MCH 32.4 MCHC 35.8 RDW 13.2 Plt Count 387 MPV 8.2 Neut % (Auto) 68.2 Lymph % (Auto) 18.3 [place] % (Auto) 9.9 H Eos % (Auto) 2.6 Baso % (Auto) 1.0 Neut # (Auto) 6.7 Lymph # (Auto) 1.8 [place] # (Auto) 1.0 H Eos # (Auto) 0.3 Baso # (Auto) 0.1 WBC Differential . Differential Comment Auto diff final ESR PT 10.6 INR 1.0 APTT 31.3 H Sodium 139 Potassium 4.1 Chloride 105 Carbon Dioxide 22.8 Anion Gap 11 BUN 16 Creatinine 1.04 Estimated GFR 78 L POC Glucose Random Glucose 90 Lactic Acid Calcium 9.5 Total Bilirubin 0.2 AST 12 L ALT 26 Alkaline Phosphatase 121 H Total Protein 8.1 Albumin 3.5 11/21/17 11/21/17 11/22/17 09:57 10:38 07:04 WBC 6.7 RBC 4.25 L Hgb 13.5 Hct 39.5 MCV 93.1 MCH 31.7 MCHC 34.0 RDW 13.1 Plt Count 421 MPV 8.1 Neut % (Auto) 63.2 Lymph % (Auto) 18.1 [place] % (Auto) 11.9 H Eos % (Auto) 5.7 H Baso % (Auto) 1.1 Neut # (Auto) 4.2 Lymph # (Auto) 1.2 [place] # (Auto) 0.8 Eos # (Auto) 0.4 Baso # (Auto) 0.1 WBC Differential . Differential Comment Auto diff final ESR 58 H PT INR APTT Sodium Potassium Chloride Carbon Dioxide Anion Gap BUN Creatinine Estimated GFR POC Glucose Random Glucose Lactic Acid 0.8 Calcium Total Bilirubin AST ALT Alkaline Phosphatase Total Protein Albumin 11/22/17 11/22/17 07:04 07:37 WBC RBC Hgb Hct MCV MCH MCHC RDW Plt Count MPV Neut % (Auto) Lymph % (Auto) [place] % (Auto) Eos % (Auto) Baso % (Auto) Neut # (Auto) Lymph # (Auto) [place] # (Auto) Eos # (Auto) Baso # (Auto) WBC Differential Differential Comment ESR PT INR APTT Sodium 141 Potassium 4.1 Chloride 106 Carbon Dioxide 24.6 Anion Gap 10 BUN 10 Creatinine 1.16 Estimated GFR 69 L POC Glucose 119 H Random Glucose 79 Lactic Acid Calcium 9.5 Total Bilirubin AST ALT Alkaline Phosphatase Total Protein Albumin Microbiology 11/21/17 11:49 Wound - Foot Gram Stain - Final Assessment and Plan - Assessment (1) Cellulitis of left ankle Code(s): L03.116 - Cellulitis of left lower limb Status: Acute (2) Infected surgical wound Code(s): T81.4XXA - Infection following a procedure, initial encounter Status : Acute (3) Bipolar disease, chronic Code(s): F31.9 - Bipolar disorder, unspecified Status: Acute - Plan Mr. Arredondo is a 41 year old male with a recent ORIF left ankle who presents to the ED due to worsening edema, tenderness, drainage as well as subjective fever , chills. He used Keflex and Bactrim for two weeks only to have symptoms return. Left ankle cellulitis Probable hardware infection of left ankle - Cultures pending. Will empirically cover with Vanc/Zosyn - Orthopedic surgery consulted - Surgical I&D today. - ID consult pending. - Acetaminophen, Percocet and Morphine PRN for pain. Bipolar disorder - Gabapentin 600mg TID. Full code. Ambulation. (2) Infected surgical wound Qualifiers: Encounter type: sequela Qualified Code(s): T81.4XXS - Infection following a procedure, sequela
[2017-11-22] MEDS ORDERED: Vancomycin Inj 1,500 MG in Sodium Chlor 0.9% Inj 500 ML IV.SIG SCH (11:00)
[2017-11-22] MEDS ORDERED: Post-op Orders (for Pharmacy) OTHER STA (11:01)
--- NOTE | 2017-11-22 11:06 | P.OP ---
- Preoperative Diagnosis (1) Infected surgical wound Date of procedure: 11/22/17 Procedure: Irrigation and debridement of left fibula Anesthesia: GETA Surgeon: Ish Avendano MD Locker Room Supervisor: BENY Marcus PA-C The surgical procedure was assisted by my physician health care assistant. My P.A. presence was necessary throughout this case for the manipulation and positioning of the surgical extremity. My P.A. was assisting me throughout the duration of this procedure. The skill set of a physician health care assistant was medically necessary to complete this procedure. During the surgical case the surgical nurse was working at the back table and the physician health care assistant was directly assisting me. Operation and Findings: Ricky was seen and evaluated preoperatively. He had drainage coming from his left lateral ankle wound suspicious for infection. Risk and benefits of surgery discussed in depth with patient. All questions were answered. He is brought the operating room. He was given IV sedation and general anesthesia. Timeout procedure was performed. Patient was already started on scheduled antibiotics. Left leg was prepped with alcohol followed Hibiclens and draped in usual sterile fashion. Timeout procedure was performed. Procedure began with a 4 inch incision through previous scar. Portions of the previous scar were completely excised. There was thick purulent appearing material present. 2 culture specimens were obtained. Curettes were used to debride the fibula and plate region. An excisional debridement was performed. After thorough debridement the wound was thoroughly irrigated with sterile saline. Overall the wound appeared to be clean at this time. Incision was now closed with 3-0 PDS and 3-0 nylon. Sterile dressings were applied. Patient was placed into a well molded well-padded splint. He was transferred to recovery room in stable condition. Needle and sponge counts were correct.
[2017-11-22] MEDS ORDERED: *morphine SULFATE 10 MG/ML PERIprocedure ONLY ONE ×3 (11:43→11:59)
[2017-11-22] MEDS ORDERED: Ketorolac Inj 30 MG/ML (IVP) Vial IV.PUSH ONE (12:00)
[2017-11-22] MEDS ORDERED: Lidocaine PF 1% Inj 5 ML Syringe INFILTRATN ONE (12:00)
[2017-11-22] MEDS ORDERED: HYDROmorphone PF Inj 2 MG/ML Vial ONE (12:06)
[2017-11-22] MEDS: Vancomycin Inj 1,500 MG in Sodium Chlor 0.9% Inj 500 ML IV.SIG SCH (14:27)
--- NOTE | 2017-11-22 15:58 | P.CONOP ---
[facility] Orthopedics Consult Note - [facility] Consult date: 11/21/17 Consult reason: joint pain Chief complaint: Left surgical incision infection, cellulitis Narrative: Patient is a 41-year-old gentleman who previously underwent open reduction internal fixation of his left ligamentous bimalleolar ankle fracture. Patient was seen in my office approximately 2 weeks ago with concern for cellulitis and drainage from his incision. During examination, patient became verbally abusive and would not allow me to examine his ankle due to reported pain. At one point he grabbed my hands and would not let go. I counseled the patient regarding my concern for infection and that he could require surgical intervention. Patient stated he did not want any further treatment from me and left my office AMA. Patient presented to the ED today with concern for increasing drainage and a new open area on his incision. He denies any recent fevers. Review of Systems other (Unable to obtain as patient became argumentative) PMFSH - History History Provided By: Patient - Surgical History Surgical History: Surgical History (Last Reviewed 11/25/17 @ 11:05 by Chely Galicia) Hx of Achilles tendon repair Status post surgical manipulation of ankle joint - Tobacco History Second Hand Smoke Exposure: Yes Tobacco Use In Past 30 Days: Yes Smoking Status: Current some day smoker Tobacco Type: Cigarettes - Alcohol History How Often Do You Have a Drink Containing Alcohol: Never - Substance Use History Substance History: No History of Abuse - Travel History Recent Travel in the [place] Within the Last 8 Weeks: No Recent Travel Out of the Country Within the Last 8 Weeks: No - Immunization History Tetanus Immunization: <5 Years Medications and Allergies Active Medications: Active Medications Acetaminophen (Tylenol) 650 mg PO Q4H PRN PRN Reason: Fever, headache, pain 1-4 Al Hydroxide/Mg Hydroxide (Milk Of Magnesia Liq) 30 ml PO Q12H PRN PRN Reason: Mild Constipation Bisacodyl (Dulcolax Supp) 10 mg RECTAL DAILY PRN PRN Reason: SEVERE CONSITIPATION Diphenhydramine HCl (Benadryl) 25 mg PO Q6H PRN PRN Reason: ITCHING Gabapentin (Neurontin) 600 mg PO TID [facility] Last Admin: 11/22/17 12:49 Dose: 600 mg Pharmacy Profile Note (Vancomycin Consult Pharmacy) 0 mls @ 0 mls/hr OTHER UNSCH [facility] Piperacillin/Tazobactam/Dextrose (Zosyn 4.5 Gm Premix) 4.5 gm in 100 mls @ 200 mls/hr IV.SIG Q6H [facility] Last Admin: 11/22/17 13:41 Dose: 200 mls/hr Lactated Ringer's (Lr 1000 Ml Inj) 1,000 mls @ 80 mls/hr IV.CONT .[id number] [facility] Vancomycin HCl 1,500 mg/ (Sodium Chloride) 515 mls @ 250 mls/hr IV.SIG Q12H [facility] Last Admin: 11/22/17 14:27 Dose: 250 mls/hr Lactulose (Lactulose Liq) 30 ml PO DAILY PRN PRN Reason: SEVERE CONSITIPATION Miscellaneous Information ([facility] [place] [facility] Ordered Lab Info) 0 each OTHER ONCE ONE Stop: 11/23/17 13:46 Miscellaneous Information ([facility] [place] Nursing Information) 1 each OTHER UNSCH PRN PRN Reason: SEE LABEL COMMENTS Stop: 11/23/17 11:20 Morphine Sulfate (Morphine Inj) 4 mg IV.PUSH Q4H PRN PRN Reason: BREAKTHROUGH PAIN Ondansetron HCl (Zofran Odt) 4 mg PO Q6H PRN PRN Reason: NAUSEA OR VOMITING Oxycodone/Acetaminophen (Percocet 7.5/325 Mg) 1 tab PO Q6H PRN PRN Reason: Pain 5-10 Last Admin: 11/22/17 13:41 Dose: 1 tab Sennosides (Senokot) 17.2 mg PO Q12H PRN PRN Reason: Moderate Constipation Sodium Chloride (Ns Flush) 2 ml IV.FLUSH BID [facility] Sodium Chloride (Ns Flush) 2 ml IV.FLUSH UNSCH PRN PRN Reason: FLUSH AFTER USING IV ACCESS Temazepam (Restoril) 15 mg PO HS PRN PRN Reason: INSOMNIA Allergies Allergy/AdvReac Type Severity Reaction Status Date / Time bee venom protein (honey bee) Allergy Severe Anaphylaxis Verified 10/09/17 14:46 onion Allergy Severe Anaphylaxis Verified 10/09/17 14:46 No Known Allergies AdvReac Unknown Uncoded 10/09/17 14:38 Home Medications Medication Instructions Recorded Confirmed Type gabapentin 600 mg PO TID 11/21/17 11/21/17 History Exam Vital signs: Vital Signs 11/21/17 16:00 11/21/17 20:00 11/22/17 00:00 Temperature 97.9 F 98 F 98.2 F Pulse Rate 85 83 85 Respiratory Rate 20 18 18 Blood Pressure 158/81 H 141/98 H 138/81 Pulse Oximetry 99 96 98 11/22/17 04:00 11/22/17 08:00 11/22/17 11:21 Temperature 98.2 F 97.4 F L Pulse Rate 79 79 Respiratory Rate 18 20 Blood Pressure 138/92 H 109/55 L Pulse Oximetry 96 96 100 11/22/17 11:30 11/22/17 11:45 11/22/17 12:00 Temperature Pulse Rate 84 86 87 Respiratory Rate 20 20 20 Blood Pressure 121/77 159/84 H 122/86 Pulse Oximetry 100 98 100 11/22/17 12:15 11/22/17 12:20 Temperature 97.5 F L Pulse Rate 66 Respiratory Rate 18 Blood Pressure 126/85 Pulse Oximetry 96 96 Intake & Output 11/21/17 11/22/17 11/22/17 18:59 06:59 18:59 Intake Total 581 / 581 200 / 200 1100 / 1100 Output Total 20 / 20 Balance 581 / 581 200 / 200 1080 / 1080 Weight 90.718 kg 90.718 kg Intake: IV 200 / 200 100 / 100 Zosyn 4.5 GM Premix 4.5 gm In 200 / 200 100 / 100 100 ml @ 200 mls/hr IV.SIG Q6H [facility] Rx#:[id number] Oral 581 / 581 Anesthesia Amount 1000 / 1000 Output: Estimated Blood Loss 20 / 20 Other: # Voids 3 # Bowel Movements 0 Narrative: Awake, alert, no acute distress Normocephalic Pupils equal No JVD Moist mucous membranes Nonlabored respirations Regular rate Left lower extremity: Incision about lateral aspect of ankle with wound dehiscence proximally with moderate erythema and edema. Unable to fully assess as patient will not allow me to palpate the area. There is small amount of drainage visible. Patient will not cooperate with full neuro exam. Results - Labs Result Diagrams: 11/26/17 06:42 11/26/17 06:42 Labs: Laboratory Results - last 24 hr 11/22/17 11/22/17 11/22/17 07:04 07:04 07:37 WBC 6.7 RBC 4.25 L Hgb 13.5 Hct 39.5 MCV 93.1 MCH 31.7 MCHC 34.0 RDW 13.1 Plt Count 421 MPV 8.1 Neut % (Auto) 63.2 Lymph % (Auto) 18.1 [place] % (Auto) 11.9 H Eos % (Auto) 5.7 H Baso % (Auto) 1.1 Neut # (Auto) 4.2 Lymph # (Auto) 1.2 [place] # (Auto) 0.8 Eos # (Auto) 0.4 Baso # (Auto) 0.1 WBC Differential . Differential Comment Auto diff final Sodium 141 Potassium 4.1 Chloride 106 Carbon Dioxide 24.6 Anion Gap 10 BUN 10 Creatinine 1.16 Estimated GFR 69 L POC Glucose 119 H Random Glucose 79 Calcium 9.5 Assessment and Plan - Assessment and Plan 41-year-old gentleman with postoperative wound infection after open reduction internal fixation of his left ankle fracture Patient again became argumentative and yelling at me as I discussed with him his options. At this time, security was present at the door as his raised voiced continued. I did explain to the patient my concern regarding infection and that I do believe surgery is warranted for at least irrigation and debridement. His fracture does not appear completely healed on radiographs and I would not recommend removing hardware at this time. He likely will require long-term antibiotics given his hardware is retained. Patient became very angry and stated he was forced to have surgery the first time and he did not want further care from me. I discussed with the patient that we had a lengthy discussion at my office and his surgery was scheduled electively as an outpatient after reviewing images and options of management with him. He chose to move forward with surgery after this lengthy discussion of risks, benefits and alternatives. At this time, I have asked my partner, Dr. Ahn to assume care of this patient. Patient will be made n.p.o. at midnight with plan for surgery tomorrow, 11/22.
--- NOTE | 2017-11-22 16:18 | MB ---
cc: Kvng Adan MD DATE: 11/22/2017 REQUESTING PHYSICIAN: Dr. Sravan Mendez. REASON FOR CONSULTATION: Left ankle draining cellulitis, possible hardware infection. HISTORY OF PRESENT ILLNESS: This is a 41-year-old white male who sustained an injury to the left ankle with fracture after he fell off a ladder. The patient underwent surgery on 10/10/2017, consisting of open reduction and internal fixation of bimalleolar ankle fracture with hardware including screws. The patient developed drainage from the left lateral ankle approximately 3 weeks ago. He was put on oral antibiotics and after 2 weeks continued to have drainage. He was on Bactrim and Keflex. He was evaluated in the emergency department because of continued drainage and pain and swelling. He has been taken to surgery today and he underwent irrigation and debridement of the wound and cultures were taken. Culture from the drainage from yesterday, 11/21/2017, has Staphylococcus aureus preliminary. He reports having occasional fever and chills. He also notes having severe pain currently on a scale of 8/10. White count is normal. Sedimentation rate is 58. PAST MEDICAL HISTORY: Left ankle surgery. ALLERGIES: BEE VENOM AND ONION. NO KNOWN DRUG ALLERGIES. MEDICATIONS: 1. Vancomycin. 2. Piperacillin/tazobactam 3. Percocet 7.5 p.r.n. 4. Neurontin. SOCIAL HISTORY: The patient is . He smokes close to a pack of cigarettes a day. Denies alcohol. Denies illicit drugs. FAMILY HISTORY: Noncontributory. REVIEW OF SYSTEMS: All systems have been reviewed and are negative, except for that mentioned in the history of present illness. PHYSICAL EXAMINATION: GENERAL: This is a well-developed male who is in no acute distress. He is awake and alert and oriented. VITAL SIGNS: Temperature 97.5, blood pressure 126/85, respirations 18, heart rate 66. HEAD, EARS, EYES, NOSE AND THROAT: Head is atraumatic. Extraocular movements are grossly intact. Pupils reactive to light. No icterus. Oropharynx has moist oral mucosa and no lesions. NECK: Supple without adenopathy. LUNGS: Clear breath sounds. HEART: Regular S1 and S2. No murmurs, rubs or gallops. ABDOMEN: Bowel sounds present. Soft, no tenderness appreciated. RECTAL: Not performed. EXTREMITIES: The left leg is in a soft cast and surgical dressing extending from the foot to the leg just beneath the knee. No visible erythema at the area above the top of the cast near the knee. No erythema of the toes. SKIN: No diffuse rash. NEUROLOGIC: No gross focal findings. PSYCHIATRIC: The patient is calm and cooperative. LABORATORY DATA: WBC 6.7, platelets 421, hemoglobin 13.5, creatinine 1.16. Estimated GFR of 69. Sodium 141. Liver function test normal. IMPRESSION: Postoperative wound infection due to Staphylococcus aureus in patient with hardware. The patient is status post ankle fracture repair. Preliminary culture has Staphylococcus aureus. Operative culture pending. RECOMMENDATIONS: 1. Continue the vancomycin. 2. Continue to piperacillin/tazobactam while awaiting the final culture. 3. If the operative culture comes back showing Staphylococcus aureus, discontinue piperacillin/tazobactam. If the culture has sensitive Staph aureus, the vancomycin rather can be changed to Ancef while the patient is in the hospital and then later on can be changed for outpatient antibiotic treatment. The patient will need IV antibiotics for 6 weeks for this infection. Thank you for this consultation. If further ID input is needed, please call ID center consultant with the final culture results. MD LENNOX Toussaint/JUNAID , 03:44 PM , 04:17 PM
[2017-11-22] MEDS: oxyCODONE/Acetaminophen 10/325 Tablet PO PRN (20:47)
[2017-11-23] MEDS: oxyCODONE/Acetaminophen 10/325 Tablet PO PRN ×5 (01:04→19:55)
[2017-11-23] MEDS: Morphine Inj 4 MG/ML Vial IV.PUSH PRN ×5 (02:05→21:26)
[2017-11-23] MEDS: Piperacil/Tazo 4.5 GM Premix 4.5 GM/100 ML BAG IV.SIG SCH ×4 (02:05→19:55)
[2017-11-23] MEDS: Vancomycin Inj 1,500 MG in Sodium Chlor 0.9% Inj 500 ML IV.SIG SCH ×2 (02:58→14:20)
[2017-11-23] MEDS: Gabapentin 300 MG Capsule PO SCH ×3 (09:04→17:01)
--- NOTE | 2017-11-23 09:08 | P.PNOP ---
Subjective Interval history: Resting comfortably in bed. Patient took splint off and put new dressings on his ankle. States that coffee was spilled on the splint Physical Exam Vital signs: Vital Signs 11/22/17 11:21 11/22/17 11:30 11/22/17 11:45 Temperature 97.4 F L Pulse Rate 79 84 86 Respiratory Rate 20 20 20 Blood Pressure 109/55 L 121/77 159/84 H Pulse Oximetry 100 100 98 11/22/17 12:00 11/22/17 12:15 11/22/17 12:20 Temperature 97.5 F L Pulse Rate 87 66 Respiratory Rate 20 18 Blood Pressure 122/86 126/85 Pulse Oximetry 100 96 96 11/22/17 16:00 11/22/17 20:00 11/23/17 00:00 Temperature 97.2 F L 98.2 F 98.2 F Pulse Rate 79 98 H 96 H Respiratory Rate 14 18 18 Blood Pressure 144/95 H 141/89 H 160/95 H Pulse Oximetry 97 98 95 11/23/17 04:00 Temperature 98.2 F Pulse Rate 101 H Respiratory Rate 18 Blood Pressure 139/86 Pulse Oximetry 99 Intake & Output 11/22/17 11/23/17 11/23/17 18:59 06:59 18:59 Intake Total 1715 / 1715 715 / 715 Output Total Balance 1695 / 1695 715 / 715 Intake: IV 715 / 715 715 / 715 Zosyn 4.5 GM Premix 4.5 gm In 200 / 200 200 / 200 100 ml @ 200 mls/hr IV.SIG Q6H [facility] Rx#:[id number] Vancomycin Inj 1,500 MG In NS 515 / 515 515 / 515 Inj 500 ML @ 250 mls/hr IV.SIG Q12H [facility] Rx#:[id number] Anesthesia Amount 1000 / 1000 Output: Estimated Blood Loss Other: # Voids 3 4 Weight On Admission 90.718 kg Narrative: GENERAL: Alert, Oriented x 3, NAD. Left lower extremity: No pain with hip or knee range of motion. Clean dressings intact over ankle but splint has been removed. He has intact sensation in all toes Results - Labs CBC & Chem 7: 11/22/17 07:04 11/22/17 07:04 Laboratory Results - last 24 hr 11/22/17 11/22/17 07:04 07:04 WBC 6.7 RBC 4.25 L Hgb 13.5 Hct 39.5 MCV 93.1 MCH 31.7 MCHC 34.0 RDW 13.1 Plt Count 421 MPV 8.1 Neut % (Auto) 63.2 Lymph % (Auto) 18.1 [place] % (Auto) 11.9 H Eos % (Auto) 5.7 H Baso % (Auto) 1.1 Neut # (Auto) 4.2 Lymph # (Auto) 1.2 [place] # (Auto) 0.8 Eos # (Auto) 0.4 Baso # (Auto) 0.1 WBC Differential . Differential Comment Auto diff final Sodium 141 Potassium 4.1 Chloride 106 Carbon Dioxide 24.6 Anion Gap 10 BUN 10 Creatinine 1.16 Estimated GFR 69 L Random Glucose 79 Calcium 9.5 Microbiology 11/21/17 11:49 Wound - Foot Gram Stain - Final 11/21/17 11:49 Wound - Foot Wound Culture - Final Staphylococcus aureus 11/22/17 10:48 Wound - Ankle Fungal Smear - Final No fungal elements seen 11/22/17 10:48 Wound - Ankle Gram Stain - Final 11/22/17 10:48 Other Fungal Smear - Final No fungal elements seen 11/22/17 10:48 Tissue - Ankle Gram Stain - Final 11/21/17 09:52 Blood - Peripheral Aerobic Blood Culture - Preliminary No growth in 1 day 11/21/17 09:52 Blood - Peripheral Anaerobic Blood Culture - Preliminary No growth in 1 day 11/21/17 09:57 Blood - Peripheral Aerobic Blood Culture - Preliminary No growth in 1 day 11/21/17 09:57 Blood - Peripheral Anaerobic Blood Culture - Preliminary No growth in 1 day Assessment and Plan - Assessment and Plan Irrigation debridement of left ankle with wound closure POD 1 Nonweightbearing left lower extremity Strict elevation to keep swelling down Orthotec for new Ahn splint Continue to follow cultures. IV antibiotics
--- NOTE | 2017-11-23 11:33 | P.PN ---
Subjective Interval history: Follow up for post-surgical complication of left ankle. Patient is doing well. Pain is well controlled. No fever, chills. S/p I&D. Physical Exam Vital signs: Vital Signs 11/22/17 11:30 11/22/17 11:45 11/22/17 12:00 Temperature Pulse Rate 84 86 87 Respiratory Rate 20 20 20 Blood Pressure 121/77 159/84 H 122/86 Pulse Oximetry 100 98 100 11/22/17 12:15 11/22/17 12:20 11/22/17 16:00 Temperature 97.5 F L 97.2 F L Pulse Rate 66 79 Respiratory Rate 18 14 Blood Pressure 126/85 144/95 H Pulse Oximetry 96 96 97 11/22/17 20:00 11/23/17 00:00 11/23/17 04:00 Temperature 98.2 F 98.2 F 98.2 F Pulse Rate 98 H 96 H 101 H Respiratory Rate 18 18 18 Blood Pressure 141/89 H 160/95 H 139/86 Pulse Oximetry 98 95 99 11/23/17 08:00 Temperature 97.7 F Pulse Rate 90 Respiratory Rate 16 Blood Pressure 146/90 H Pulse Oximetry 95 Intake & Output 11/22/17 11/23/17 11/23/17 18:59 06:59 18:59 Intake Total 1715 / 1715 715 / 715 100 / 100 Output Total 20 Balance 1695 / 1695 715 / 715 100 / 100 Intake: IV 715 / 715 715 / 715 100 / 100 Zosyn 4.5 GM Premix 4.5 gm In 200 / 200 200 / 200 100 / 100 100 ml @ 200 mls/hr IV.SIG Q6H [facility] Rx#:[id number] Vancomycin Inj 1,500 MG In NS 515 / 515 515 / 515 Inj 500 ML @ 250 mls/hr IV.SIG Q12H [facility] Rx#:[id number] Anesthesia Amount 1000 / 1000 Output: Estimated Blood Loss Other: # Voids 3 4 Weight On Admission 90.718 kg Narrative: GENERAL: Alert, Oriented x 3, NAD. SKIN: Warm and dry. HEAD: Normocephalic. EYES: No scleral icterus. No injection or drainage. NECK: Supple, trachea midline. No JVD or lymphadenopathy. CARDIOVASCULAR: Regular rate and rhythm without murmurs, gallops, or rubs. RESPIRATORY: Breath sounds equal bilaterally. No accessory muscle use. GASTROINTESTINAL: Abdomen soft, non-tender, nondistended. MUSCULOSKELETAL: No cyanosis, or edema. s/p left ankle I&D. BACK: Nontender without obvious deformity. No CVA tenderness. Results - Labs CBC & Chem 7: 11/22/17 07:04 11/22/17 07:04 Microbiology 11/21/17 09:52 Blood - Peripheral Aerobic Blood Culture - Preliminary No growth in 2 days 11/21/17 09:52 Blood - Peripheral Anaerobic Blood Culture - Preliminary No growth in 2 days 11/21/17 09:57 Blood - Peripheral Aerobic Blood Culture - Preliminary No growth in 2 days 11/21/17 09:57 Blood - Peripheral Anaerobic Blood Culture - Preliminary No growth in 2 days 11/21/17 11:49 Wound - Foot Gram Stain - Final 11/21/17 11:49 Wound - Foot Wound Culture - Final Staphylococcus aureus 11/22/17 10:48 Wound - Ankle Fungal Smear - Final No fungal elements seen 11/22/17 10:48 Wound - Ankle Gram Stain - Final 11/22/17 10:48 Other Fungal Smear - Final No fungal elements seen 11/22/17 10:48 Tissue - Ankle Gram Stain - Final Assessment and Plan - Assessment (1) Cellulitis of left ankle Code(s): L03.116 - Cellulitis of left lower limb Status: Acute (2) Infected surgical wound Code(s): T81.4XXA - Infection following a procedure, initial encounter Status : Acute (3) Bipolar disease, chronic Code(s): F31.9 - Bipolar disorder, unspecified Status: Acute - Plan Mr. Arredondo is a 41 year old male with a recent ORIF left ankle who presents to the ED due to worsening edema, tenderness, drainage as well as subjective fever , chills. He used Keflex and Bactrim for two weeks only to have symptoms return. Left ankle cellulitis Probable hardware infection of left ankle - Wound cx growing Staph Aureus, continue to follow C&S. Continue Vanc/Zosyn - Will de-escalate depending on the culture results. - s/p left ankle I&D. Orthopedic surgery and ID following. - Acetaminophen, Percocet and Morphine PRN for pain. Bipolar disorder - Gabapentin 600mg TID. Full code. Ambulation. (2) Infected surgical wound Qualifiers: Encounter type: sequela Qualified Code(s): T81.4XXS - Infection following a procedure, bibiana
[2017-11-23] MEDS ORDERED: Pharmacy Ordered Lab Info OTHER ONE (13:45)
[2017-11-24] MEDS: Temazepam 15 MG Capsule PO PRN (00:24)
[2017-11-24] MEDS: oxyCODONE/Acetaminophen 10/325 Tablet PO PRN ×5 (00:24→21:37)
[2017-11-24] MEDS: Piperacil/Tazo 4.5 GM Premix 4.5 GM/100 ML BAG IV.SIG SCH ×4 (05:43→21:36)
[2017-11-24] MEDS ORDERED: Vancomycin Inj 1,250 MG in Sodium Chlor 0.9% Inj 250 ML IV.SIG SCH (06:00)
--- NOTE | 2017-11-24 07:00 | P.PNOP ---
Subjective Interval history: Resting comfortably with no new complaints Physical Exam Vital signs: Vital Signs 11/23/17 08:00 11/23/17 12:00 11/23/17 13:03 Temperature 97.7 F 97.9 F Pulse Rate 90 88 Respiratory Rate 16 14 18 Blood Pressure 146/90 H 153/100 H Pulse Oximetry 95 100 11/23/17 16:14 11/23/17 20:00 11/24/17 00:00 Temperature 97.8 F 97.8 F 98 F Pulse Rate 92 H 99 H 90 Respiratory Rate 18 18 18 Blood Pressure 140/92 H 150/90 H 155/108 H Pulse Oximetry 93 L 99 98 11/24/17 04:00 Temperature 97.3 F L Pulse Rate 77 Respiratory Rate 18 Blood Pressure 146/98 H Pulse Oximetry 96 Intake & Output 11/23/17 11/23/17 11/24/17 06:59 18:59 06:59 Intake Total 715 / 715 715 / 715 100 / 100 Balance 715 / 715 715 / 715 100 / 100 Weight 90.7 kg Intake: IV 715 / 715 715 / 715 100 / 100 Zosyn 4.5 GM Premix 4.5 gm In 200 / 200 200 / 200 100 / 100 100 ml @ 200 mls/hr IV.SIG Q6H [facility] Rx#:[id number] Vancomycin Inj 1,500 MG In NS 515 / 515 515 / 515 Inj 500 ML @ 250 mls/hr IV.SIG Q12H [facility] Rx#:[id number] Other: # Voids 4 2 Weight On Admission 90.718 kg Narrative: GENERAL: Alert, Oriented x 3, NAD. Left lower extremity: No pain with hip or knee range of motion. Short leg posterior and stirrup splint in place. Clean dry. Distally intact sensation all toes. Is able to move all toes appropriately. Good capillary refills and tissue perfusion Results - Labs CBC & Chem 7: 11/22/17 07:04 11/22/17 07:04 Laboratory Results - last 24 hr 11/23/17 12:50 Vancomycin Trough 17.4 H Microbiology 11/22/17 10:48 Wound - Ankle Gram Stain - Final 11/22/17 10:48 Wound - Ankle Wound Culture - Preliminary Staphylococcus aureus 11/22/17 10:48 Wound - Ankle Fungal Smear - Final No fungal elements seen 11/22/17 10:48 Tissue - Ankle Gram Stain - Final 11/22/17 10:48 Tissue - Ankle Wound Culture - Preliminary Staphylococcus aureus 11/21/17 09:52 Blood - Peripheral Aerobic Blood Culture - Preliminary No growth in 2 days 11/21/17 09:52 Blood - Peripheral Anaerobic Blood Culture - Preliminary No growth in 2 days 11/21/17 09:57 Blood - Peripheral Aerobic Blood Culture - Preliminary No growth in 2 days 11/21/17 09:57 Blood - Peripheral Anaerobic Blood Culture - Preliminary No growth in 2 days 11/21/17 11:49 Wound - Foot Gram Stain - Final 11/21/17 11:49 Wound - Foot Wound Culture - Final Staphylococcus aureus Assessment and Plan - Assessment and Plan Irrigation debridement of left ankle with wound closure POD 2 Nonweightbearing left lower extremity Strict elevation to keep swelling down maintain splint Continue to follow cultures. IV antibiotics per infectious disease When IV antibiotics are arranged we may work toward discharge to home Follow up with Dr. Ahn or PA in 2 weeks
[2017-11-24] MEDS: Morphine Inj 4 MG/ML Vial IV.PUSH PRN (07:12)
[2017-11-24] MEDS: Gabapentin 300 MG Capsule PO SCH ×3 (08:02→17:10)
--- NOTE | 2017-11-24 08:22 | P.PN ---
Subjective Interval history: Follow up for post-surgical complication of left ankle. Patient complains of significant left ankle pain. No fever or chills. Physical Exam Vital signs: Vital Signs 11/23/17 12:00 11/23/17 13:03 11/23/17 16:14 Temperature 97.9 F 97.8 F Pulse Rate 88 92 H Respiratory Rate 14 18 18 Blood Pressure 153/100 H 140/92 H Pulse Oximetry 100 93 L 11/23/17 20:00 11/24/17 00:00 11/24/17 04:00 Temperature 97.8 F 98 F 97.3 F L Pulse Rate 99 H 90 77 Respiratory Rate 18 18 18 Blood Pressure 150/90 H 155/108 H 146/98 H Pulse Oximetry 99 98 96 Intake & Output 11/23/17 11/24/17 11/24/17 18:59 06:59 18:59 Intake Total 715 / 715 100 / 100 362.5 / 362.5 Balance 715 / 715 100 / 100 362.5 / 362.5 Weight 90.7 kg Intake: IV 715 / 715 100 / 100 362.5 / 362.5 Zosyn 4.5 GM Premix 4.5 gm In 200 / 200 100 / 100 100 / 100 100 ml @ 200 mls/hr IV.SIG Q6H [facility] Rx#:[id number] Vancomycin Inj 1,250 MG In NS 262.5 / 262.5 Inj 250 ML @ 250 mls/hr IV.SIG Q12H [facility] Rx#:[id number] Vancomycin Inj 1,500 MG In NS 515 / 515 Inj 500 ML @ 250 mls/hr IV.SIG Q12H [facility] Rx#:[id number] Other: # Voids 4 2 Narrative: GENERAL: Alert, Oriented x 3, NAD. SKIN: Warm and dry. HEAD: Normocephalic. EYES: No scleral icterus. No injection or drainage. NECK: Supple, trachea midline. No JVD or lymphadenopathy. CARDIOVASCULAR: Regular rate and rhythm without murmurs, gallops, or rubs. RESPIRATORY: Breath sounds equal bilaterally. No accessory muscle use. GASTROINTESTINAL: Abdomen soft, non-tender, nondistended. MUSCULOSKELETAL: No cyanosis, or edema. s/p left ankle I&D. BACK: Nontender without obvious deformity. No CVA tenderness. Results - Labs CBC & Chem 7: 11/22/17 07:04 11/24/17 08:01 Laboratory Results - last 24 hr 11/23/17 12:50 Vancomycin Trough 17.4 H Microbiology 11/22/17 10:48 Wound - Ankle Gram Stain - Final 11/22/17 10:48 Wound - Ankle Wound Culture - Preliminary Staphylococcus aureus 11/22/17 10:48 Wound - Ankle Fungal Smear - Final No fungal elements seen 11/22/17 10:48 Tissue - Ankle Gram Stain - Final 11/22/17 10:48 Tissue - Ankle Wound Culture - Preliminary Staphylococcus aureus 11/21/17 09:52 Blood - Peripheral Aerobic Blood Culture - Preliminary No growth in 2 days 11/21/17 09:52 Blood - Peripheral Anaerobic Blood Culture - Preliminary No growth in 2 days 11/21/17 09:57 Blood - Peripheral Aerobic Blood Culture - Preliminary No growth in 2 days 11/21/17 09:57 Blood - Peripheral Anaerobic Blood Culture - Preliminary No growth in 2 days 11/21/17 11:49 Wound - Foot Gram Stain - Final 11/21/17 11:49 Wound - Foot Wound Culture - Final Staphylococcus aureus Assessment and Plan - Assessment (1) Cellulitis of left ankle Code(s): L03.116 - Cellulitis of left lower limb Status: Acute (2) Infected surgical wound Code(s): T81.4XXA - Infection following a procedure, initial encounter Status : Acute (3) Bipolar disease, chronic Code(s): F31.9 - Bipolar disorder, unspecified Status: Acute - Plan Mr. Arredondo is a 41 year old male with a recent ORIF left ankle who presents to the ED due to worsening edema, tenderness, drainage as well as subjective fever , chills. He used Keflex and Bactrim for two weeks only to have symptoms return. Left ankle cellulitis Probable hardware infection of left ankle - Wound cx growing Staph Aureus, continue to follow C&S. Continue Vanc/Zosyn - We can likely de-escalate antibiotics to ceftriaxone once a day. - However patient received oral antibiotics recently -will wait for ID recommendations before we switch antibiotics. - s/p left ankle I&D. Orthopedic surgery and ID following. - Acetaminophen, Percocet and Dilaudid IV PRN for pain. Bipolar disorder - Gabapentin 600mg TID. Full code. Ambulation. (2) Infected surgical wound Qualifiers: Encounter type: sequela Qualified Code(s): T81.4XXS - Infection following a procedure, bibiana
[2017-11-24] MEDS ORDERED: HYDROmorphone PF Inj 2 MG/ML Vial IV.PUSH ONE (10:00)
[2017-11-24] MEDS ORDERED: Famotidine 20 MG Tablet PO ONE (11:58)
[2017-11-24] MEDS: HYDROmorphone PF Inj 2 MG/ML Vial IV.PUSH PRN ×3 (14:21→22:47)
[2017-11-24] MEDS: Famotidine 20 MG Tablet PO SCH (21:36)
[2017-11-25] MEDS ORDERED: Vancomycin Inj 1,500 MG in Sodium Chlor 0.9% Inj 500 ML IV.SIG SCH ×2
[2017-11-25] MEDS: oxyCODONE/Acetaminophen 10/325 Tablet PO PRN ×5 (03:43→20:48)
[2017-11-25] MEDS: Piperacil/Tazo 4.5 GM Premix 4.5 GM/100 ML BAG IV.SIG SCH ×2 (03:43→08:03)
[2017-11-25] MEDS: HYDROmorphone PF Inj 2 MG/ML Vial IV.PUSH PRN ×5 (05:24→23:26)
[2017-11-25] MEDS: Gabapentin 300 MG Capsule PO SCH ×3 (08:03→18:11)
[2017-11-25] MEDS: Famotidine 20 MG Tablet PO SCH ×2 (08:03→20:49)
--- NOTE | 2017-11-25 12:51 | P.PNIM ---
Subjective Interval history: Patient complains of pain but has pain treatments in place. His splint is annoying him but he understands that he needs to remain on. No other complaints today. Physical Exam Vital signs: Vital Signs 11/24/17 16:00 11/24/17 20:00 11/25/17 00:00 Temperature 97.3 F L 98 F 97.9 F Pulse Rate 94 H 84 82 Respiratory Rate 19 18 18 Blood Pressure 159/105 H 169/116 H 162/106 H Pulse Oximetry 98 99 99 11/25/17 04:00 11/25/17 09:45 11/25/17 12:37 Temperature 98 F 97.2 F L 97.4 F L Pulse Rate 87 86 85 Respiratory Rate 18 16 18 Blood Pressure 162/103 H 162/100 H 171/107 H Pulse Oximetry 99 99 100 Intake & Output 11/24/17 11/25/17 11/25/17 18:59 06:59 18:59 Intake Total 0 / 0 715 / 715 Balance 0 / 0 715 / 715 Weight 87.2 kg Intake: IV 562.5 / 562.5 0 / 0 715 / 715 Zosyn 4.5 GM Premix 4.5 gm In 300 / 300 0 / 0 200 / 200 100 ml @ 200 mls/hr IV.SIG Q6H [facility] Rx#:[id number] Vancomycin Inj 1,250 MG In NS 262.5 / 262.5 Inj 250 ML @ 250 mls/hr IV.SIG Q12H [facility] Rx#:[id number] Vancomycin Inj 1,500 MG In NS 515 / 515 Inj 500 ML @ 250 mls/hr IV.SIG Q18H [facility] Rx#:[id number] Oral 1440 / 1440 Other: # Voids 10 2 1 # Bowel Movements 1 Narrative: GENERAL: NAD, A&Ox3 HEAD: Normocephalic. NECK: Supple, trachea midline. No lymphadenopathy. EYES: No scleral icterus. No injection or drainage. CARDIOVASCULAR: Regular rate and rhythm without murmurs, gallops, or rubs. RESPIRATORY: Breath sounds equal bilaterally. No accessory muscle use. GASTROINTESTINAL: Abdomen soft, non-tender, nondistended. MUSCULOSKELETAL: No cyanosis, or edema. SKIN: Warm and dry. NEURO: No focal neurological deficits. Results - Labs CBC & Chem 7: 11/22/17 07:04 11/24/17 08:01 Microbiology 11/21/17 09:52 Blood - Peripheral Aerobic Blood Culture - Preliminary No growth in 4 days 11/21/17 09:52 Blood - Peripheral Anaerobic Blood Culture - Preliminary No growth in 4 days 11/21/17 09:57 Blood - Peripheral Aerobic Blood Culture - Preliminary No growth in 4 days 11/21/17 09:57 Blood - Peripheral Anaerobic Blood Culture - Preliminary No growth in 4 days 11/22/17 10:48 Wound - Ankle Acid Fast Bacilli Smear - Final No acid fast bacilli seen 11/22/17 10:48 Other Acid Fast Bacilli Smear - Final No acid fast bacilli seen Assessment and Plan - Assessment (1) Cellulitis of left ankle Code(s): L03.116 - Cellulitis of left lower limb Status: Acute (2) Infected surgical wound Code(s): T81.4XXA - Infection following a procedure, initial encounter Status : Acute (3) Bipolar disease, chronic Code(s): F31.9 - Bipolar disorder, unspecified Status: Acute - Plan 41 year old male admitted secondary to postop wound infection at the left ankle. Left ankle cellulitis Probable hardware infection of left ankle Status post I&D Continue vancomycin Continue Zosyn ID following Orthopedic surgeons following Continue pain treatments as needed Bipolar disorder Continue baseline treatments No exacerbations (2) Infected surgical wound Qualifiers: Encounter type: sequela Qualified Code(s): T81.4XXS - Infection following a procedure, sequela
--- NOTE | 2017-11-25 15:25 | P.DCO ---
Post Hospital Infusion Therapy Location of Infusion Therapy: Home Health Care IV Infusion Order Patient Weight: 87.2 kg - Diagnosis (1) Infected surgical wound Code(s): T81.4XXA - Infection following a procedure, initial encounter - Administer Medication Oxacillin Additional Dosing Instructions: 12 grams Q 24 hours continuous (2 grams Q 4 Hours equivalent) Stop Treatment: 01/02/18 - Additional Information Venous Access: PICC Line Additional Instructions: [x] Peripheral flush and dressing changes per protocol [x] Implanted port and central production line technician: * Implanted port: 10 ml Normal Saline followed by 5 ml Heparin 100 units/ml Heparin flush after each use and monthly to maintain. [] May leave port accessed during therapy. [] May leave peripheral site accessed for duration of therapy. [x] If patient has SOB or respiratory distress, check oxygen saturation. If less than 90% or clinical signs of respiratory distress, administer oxygen at 2 L/min. via nasal cannula and notify physician. [x] Anaphylaxis/Reaction orders: * Stop infusion. * Keep IV line open with saline flush. * Notify physician. * Monitor vital signs every 15 minutes until symptoms resolve. * Check Oxygen saturation; Oxygen at 2 L/min. via nasal cannula if less than 90% or clinical signs of respiratory distress. * Administer diphenhydramine (Benadryl) 25 mg IV STAT, (unless patient has received as pre-med). May repeat once, if necessary. * Solu-Cortef 250 mg IVP over 30-60 seconds, use 100 mg vials for each dissolution. * Epinephrine (1mg/1 ml) 0.3 mg subcutaneously or IVP now with any signs of respiratory distress. * Check with physician for new additional pre-med orders if patient is re- challenged or re-treated. [x] May remove PICC line when treatment complete, after confirming with Physician. [x] If the patient is admitted to the hospital, the ED, or transferred via [facility] , complete transfer form including medication reconciliation order sheet. Weekly Labs: BMP, CBC w/diff Allergies bee venom protein (honey bee) Allergy (Severe, Verified 10/09/17 14:46) Anaphylaxis onion Allergy (Severe, Verified 10/09/17 14:46) Anaphylaxis No Known Allergies Adverse Reaction (Unknown, Uncoded 10/09/17 14:38) (1) Infected surgical wound Qualifiers: Encounter type: sequela Qualified Code(s): T81.4XXS - Infection following a procedure, bibiana
--- NOTE | 2017-11-25 15:35 | P.PNID ---
Subjective Remarks: Patient feels okay. Denies chills or nausea vomiting. Reports pain in the left ankle. Afebrile. Wound culture has MSSA. This is a 41-year-old white male who sustained an injury to the left ankle with fracture after he fell off a ladder. The patient underwent surgery on 10/10/2017, consisting of open reduction and internal fixation of bimalleolar ankle fracture with hardware including screws. The patient developed drainage from the left lateral ankle approximately 3 weeks ago. He was put on oral antibiotics and after 2 weeks continued to have drainage. He was on Bactrim and Keflex. He was evaluated in the emergency department because of continued drainage and pain and swelling. He has been taken to surgery and he underwent irrigation and debridement of the wound. Past Medical History: PAST MEDICAL HISTORY: Left ankle surgery. Allergies/Adverse Reactions: Allergies bee venom protein (honey bee) Allergy (Severe, Verified 10/09/17 14:46) Anaphylaxis onion Allergy (Severe, Verified 10/09/17 14:46) Anaphylaxis No Known Allergies Adverse Reaction (Unknown, Uncoded 10/09/17 14:38) Objective Vital Signs 11/24/17 16:00 11/24/17 20:00 11/25/17 00:00 Temperature 97.3 F L 98 F 97.9 F Pulse Rate 94 H 84 82 Respiratory Rate 19 18 18 Blood Pressure 159/105 H 169/116 H 162/106 H Pulse Oximetry 98 99 99 11/25/17 04:00 11/25/17 09:45 11/25/17 12:37 Temperature 98 F 97.2 F L 97.4 F L Pulse Rate 87 86 85 Respiratory Rate 18 16 18 Blood Pressure 162/103 H 162/100 H 171/107 H Pulse Oximetry 99 99 100 11/25/17 15:26 Temperature 97.7 F Pulse Rate 79 Respiratory Rate 18 Blood Pressure 161/102 H Pulse Oximetry 100 Intake & Output 11/24/17 11/25/17 11/25/17 18:59 06:59 18:59 Intake Total 0 / 0 Balance 0 / 0 Weight 87.2 kg 87.2 kg Intake: IV 562.5 / 562.5 0 / 0 Zosyn 4.5 GM Premix 4.5 gm In 300 / 300 0 / 0 200 / 200 100 ml @ 200 mls/hr IV.SIG Q6H [facility] Rx#:[id number] Vancomycin Inj 1,250 MG In NS 262.5 / 262.5 Inj 250 ML @ 250 mls/hr IV.SIG Q12H [facility] Rx#:[id number] Vancomycin Inj 1,500 MG In NS 515 / 515 Inj 500 ML @ 250 mls/hr IV.SIG Q18H [facility] Rx#:[id number] Oral 1440 / 1440 Other: # Voids 10 2 1 # Bowel Movements 1 11/21/17 09:52 Blood - Peripheral Aerobic Blood Culture - Preliminary No growth in 4 days 11/21/17 09:52 Blood - Peripheral Anaerobic Blood Culture - Preliminary No growth in 4 days 11/21/17 09:57 Blood - Peripheral Aerobic Blood Culture - Preliminary No growth in 4 days 11/21/17 09:57 Blood - Peripheral Anaerobic Blood Culture - Preliminary No growth in 4 days 11/22/17 10:48 Wound - Ankle Acid Fast Bacilli Smear - Final No acid fast bacilli seen 11/22/17 10:48 Wound - Ankle Mycobacterial Culture - Pending 11/22/17 10:48 Other Acid Fast Bacilli Smear - Final No acid fast bacilli seen 11/22/17 10:48 Other Mycobacterial Culture - Pending 11/22/17 10:48 Wound - Ankle Gram Stain - Final 11/22/17 10:48 Wound - Ankle Wound Culture - Final Staphylococcus aureus 11/22/17 10:48 Tissue - Ankle Gram Stain - Final 11/22/17 10:48 Tissue - Ankle Wound Culture - Final Staphylococcus aureus 11/22/17 10:48 Wound - Ankle Fungal Smear - Final No fungal elements seen 11/22/17 10:48 Wound - Ankle Fungal Culture - Pending 11/21/17 11:49 Wound - Foot Gram Stain - Final 11/21/17 11:49 Wound - Foot Wound Culture - Final Staphylococcus aureus 11/22/17 10:48 Other Fungal Smear - Final No fungal elements seen 11/22/17 10:48 Other Fungal Culture - Pending Lab - Chemistry Results 11/24/17 08:01 Creatinine 1.33 H Estimated GFR 59 L Imaging: ITS Impressions Ankle X-Ray 11/21/17 09:03 CONCLUSION: 1. Persistent soft tissue swelling overlying lateral malleolus. 2. Stable fixation hardware with interval bony remodeling of the lateral malleolus. 3. No interval new fracture or bony destruction. Chest X-Ray 11/21/17 09:04 CONCLUSION: 1. No acute cardiopulmonary disease. Physical Exam: PHYSICAL EXAMINATION: GENERAL: No acute distress. He is awake and alert and oriented. HEAD, EARS, EYES, NOSE AND THROAT: Extraocular movements are grossly intact. Pupils reactive to light. No icterus. Oropharynx has moist oral mucosa and no lesions. NECK: Supple without adenopathy. LUNGS: Clear breath sounds. HEART: Regular S1 and S2. No murmurs, rubs or gallops. ABDOMEN: Bowel sounds present. Soft, no tenderness appreciated. EXTREMITIES: The left leg has surgical dressing extending from the foot to the leg just beneath the knee. SKIN: No diffuse rash. NEUROLOGIC: No gross focal findings. PSYCHIATRIC: Calm and cooperative. Assessment and Plan (1) Infected surgical wound Status: Acute Code(s): T81.4XXA - Infection following a procedure, initial encounter - Plan IMPRESSION: Postoperative wound infection due to Staphylococcus aureus MSSA in patient with hardware. The patient is status post ankle fracture repair. RECOMMENDATIONS: 1. Stop vancomycin. 2. Stop piperacillin/tazobactam. 3. Start oxacillin IV 2 g every 4 hours. The organism is most sensitive to that antibiotic. 4. Treatment with IV oxacillin until 01/02/2018. (1) Infected surgical wound Qualifiers: Encounter type: sequela Qualified Code(s): T81.4XXS - Infection following a procedure, sequela
[2017-11-25] MEDS: Temazepam 15 MG Capsule PO PRN (23:21)
[2017-11-26] MEDS: oxyCODONE/Acetaminophen 10/325 Tablet PO PRN ×3 (04:14→14:00)
[2017-11-26] MEDS: HYDROmorphone PF Inj 2 MG/ML Vial IV.PUSH PRN ×3 (06:35→14:06)
[2017-11-26 07:52] LABS: Baso # (Auto) 0.1 th/mm3 (0.0-0.2); Baso % (Auto) 0.9 % (0.0-2.0); Eos # (Auto) 0.5 th/mm3 (0.0-0.4); Eos % (Auto) 5.1 % (0.0-4.0); Hematocrit 41.1 % (39.0-51.0); Hemoglobin 14.1 gm/dL (13.0-17.0); Lymph # (Auto) 1.9 th/mm3 (1.0-4.8); Mean Corpuscular HGB Conc 34.4 % (32.0-36.0); Mean Corpuscular Hemoglobin 31.5 pg (27.0-34.0); Mean Corpuscular Volume 91.5 fL (80.0-100.0); Mean Platelet Volume 7.7 fL (7.0-11.0); Mono # (Auto) 0.9 th/mm3 (0.0-0.9); Mono % (Auto) 9.9 % (0.0-8.0); Neut % (Auto) 64.1 % (16.0-70.0); Platelet Count 397 th/mm3 (150-450); Red Blood Count 4.49 mil/mm3 (4.50-5.90); Red Cell Distribution Width 12.9 % (11.6-17.2); White Blood Count 9.4 th/mm3 (4.0-11.0)
[2017-11-26 08:52] LABS: Alanine Aminotransferase 31 U/L (12-78); Albumin 3.4 g/dL (3.4-5.0); Alkaline Phosphatase 107 U/L (45-117); Anion Gap 7 meq/L (5-15); Aspartate Aminotransferase 20 U/L (15-37); Blood Urea Nitrogen 14 mg/dL (7-18); Calcium 8.8 mg/dL (8.5-10.1); Carbon Dioxide 28.1 meq/L (21.0-32.0); Chloride 107 meq/L (98-107); Glomerular Filtration Rate 65 mL/min (>89); Glucose,Random 90 mg/dL (74-106); Potassium 3.9 meq/L (3.5-5.1); Sodium 142 meq/L (136-145); Total Protein 7.8 g/dL (6.4-8.2)
[2017-11-26] MEDS: Famotidine 20 MG Tablet PO SCH (08:54)
[2017-11-26] MEDS: Gabapentin 300 MG Capsule PO SCH ×2 (08:54→14:31)
[2017-11-26] MEDS ORDERED: Enoxaparin Inj 40 MG/0.4 ML Syringe SQ SCH (09:00)
--- NOTE | 2017-11-26 09:08 | P.DCO ---
- Home Health Nursing Order: Medical education, Medication education-adverse effect, Nursing assessment with vital signs, IV medication administration - Certification I have seen patient Ricky Arredondo on 11/26/17. My clinical findings support the need for the requested home health care services because: Limited mobility due to disease progression, Infection with risk of complications, Injectable medication education/administration I certify that my clinical findings support that this patient is homebound because: Post-op weakness, Unsteady gait/balance, Unsafe to leave home unassisted, Non- ambulatory: confined to bed or chair, Unable to use public transportation
[2017-11-26] MEDS ORDERED: Pharmacy Ordered Lab Info OTHER ONE (11:45)
--- NOTE | 2017-11-26 13:32 | P.DS ---
Date of admission: 11/21/17 12:39 Primary care physician: No Primary Care Physician Brief History from admission: Mr. Arredondo is a 41 year old male with a recent left ankle injury s/p ORIF left ankle who presents to the ED due to worsening swelling, pain and drainage of the left ankle. Patient injured his left ankle and subsequently underwent ORIF about a month ago. He had a cast on and due to swelling, he cut the cast off. During a follow up visit with his Orthopedic surgeon, patient's pain was significant and had some disagreement with the surgeon. He later on came to the ED and was discharged on Keflex and Bactrim for two weeks. Although he had some improvement, his symptoms deteriorated again after abx course. He reports significant drainage, swelling and pain. He also reports subjective fever, chills. He denies any changes in bowel or bladder habits. No chest pain, no shortness of breath. No cough, abdominal pain. DS: Diagnosis - Discharge Diagnosis (1) Cellulitis of left ankle Status: Acute (2) Infected surgical wound Status: Acute (3) Bipolar disease, chronic Status: Acute DS: Medications - Discharge Medications Prescriptions: oxycodone-acetaminophen [Percocet] 1 tab PO Q4-6H PRN #30 tab PRN Reason: Pain DS: Summary Hospital Course: Mr. Arredondo is a 41-year-old male. He was admitted secondary to a left lower extremity infection. The infection was a wound infection which is postop. The wound was opened and debrided. The patient has done well postop. Plan is to leave hardware in place while he is on IV antibiotics at home. She will have hardware removed in the near future before antibiotics were stopped. The plan now is oxacillin for 6 weeks. Patient is medically stable and cleared for discharge he has been cleared for discharge by orthopedics. Discharge home today when outpatient home health is arranged and antibiotic therapies are arranged. - Time Spent with Patient Total time spent providing and/or coordinating discharge services: - Quality: VTE Deep Vein Thrombosis/Pulmonary Embolism Present on Admission: No Exam Vital signs: Vital Signs 11/25/17 15:26 11/25/17 20:50 11/26/17 01:15 Temperature 97.7 F 97.8 F 98 F Pulse Rate 79 82 70 Respiratory Rate 18 16 21 Blood Pressure 161/102 H 174/100 H 130/78 Pulse Oximetry 100 99 96 11/26/17 04:00 11/26/17 08:00 11/26/17 12:00 Temperature 97.7 F 97.6 F 97.4 F L Pulse Rate 65 74 82 Respiratory Rate 17 19 20 Blood Pressure 140/80 171/114 H 158/105 H Pulse Oximetry 97 100 100 Intake & Output 11/25/17 11/26/17 11/26/17 18:59 06:59 18:59 Intake Total 2014 2250 / 2250 100 / 100 Output Total 2 / 2 Balance 2012 2250 / 2250 100 / 100 Weight 87.2 kg 87.2 kg Intake: IV 815 / 815 300 / 300 100 / 100 Prostaphlin Inj 2 GM In NS Inj 100 / 100 300 / 300 100 / 100 100 ML @ 200 mls/hr IV.SIG Q4H [facility] Rx#:[id number] Zosyn 4.5 GM Premix 4.5 gm In 200 / 200 100 ml @ 200 mls/hr IV.SIG Q6H [facility] Rx#:[id number] Vancomycin Inj 1,500 MG In NS 515 / 515 Inj 500 ML @ 250 mls/hr IV.SIG Q18H [facility] Rx#:[id number] Oral 1200 / 1200 1950 / 1950 Output: Stool 2 / 2 Other: # Voids 3 4 # Bowel Movements 0 Results Procedures completed during hospitalization: Surgical Debridment and Drainage of left foot wound infection Labs on day of discharge: Labs from last 24 hours 11/26/17 11/26/17 06:42 06:42 WBC 9.4 RBC 4.49 L Hgb 14.1 Hct 41.1 MCV 91.5 MCH 31.5 MCHC 34.4 RDW 12.9 Plt Count 397 MPV 7.7 Neut % (Auto) 64.1 Lymph % (Auto) 20.0 [place] % (Auto) 9.9 H Eos % (Auto) 5.1 H Baso % (Auto) 0.9 Neut # (Auto) 6.0 Lymph # (Auto) 1.9 [place] # (Auto) 0.9 Eos # (Auto) 0.5 H Baso # (Auto) 0.1 WBC Differential . Differential Comment Auto diff final Sodium 142 Potassium 3.9 Chloride 107 Carbon Dioxide 28.1 Anion Gap 7 BUN 14 Creatinine 1.22 Estimated GFR 65 L Random Glucose 90 Calcium 8.8 Total Bilirubin 0.1 L AST 20 ALT 31 Alkaline Phosphatase 107 Total Protein 7.8 Albumin 3.4 - Impressions ITS Impressions Ankle X-Ray 11/21/17 09:03 CONCLUSION: 1. Persistent soft tissue swelling overlying lateral malleolus. 2. Stable fixation hardware with interval bony remodeling of the lateral malleolus. 3. No interval new fracture or bony destruction. Chest X-Ray 11/21/17 09:04 CONCLUSION: 1. No acute cardiopulmonary disease. Discharge Plan - Discharge Disposition Patient Disposition: /[facility] - Discharge Condition Condition: Stable - Discharge Order Discharge Orders: Discharge Order (Routine); Ordered 11/26/17 Ordered By: Dat Mayes - Discharge Details Anticipated Discharge Date: 11/26/17 - Physicians Team Primary Care Provider: Primary Care Sonyai,No Attending Provider: Dat Mayes Other Providers: Fito Luevano MD ; Kvng Adan MD ; Ish Avendano MD ; [facility],Agency
[2017-11-26] MEDS ORDERED: Heparin Central Flush 100 UNIT/ML 5 ML Vial IV.FLUSH PRN (14:23)
--- NOTE | 2017-11-26 14:33 | XR ---
EXAM DATE: 11/26/2017 2:03 PM EDT AGE/SEX: 41 years / Male INDICATIONS: Post PICC line placement. CLINICAL DATA: This is the patient's initial encounter. Patient reports that signs and symptoms have been present for 1 day and indicates a pain score of 0/10. MEDICAL/SURGICAL HISTORY: . None. Left ankle ORIF . COMPARISON: C, CHEST 1V SINGLE AP, 11/21/2017. . FINDINGS: A single AP view of the chest demonstrates the lungs to be symmetrically aerated without evidence of mass, infiltrate or effusion. The cardiomediastinal contours are unremarkable. Osseous structures a re intact. The right-sided PICC line is in place with the tip projected over the superior vena cava. There is no pneumothorax. CONCLUSION: 1. Interval placement of right-sided PICC line. 2. No acute cardiopulmonary disease. Electronically signed by: Derrell Vincent MD 11/26/2017 2:31 PM EDT
[2017-11-27] MEDS ORDERED: Heparin Central Flush 100 UNIT/ML 5 ML Vial IV.FLUSH SCH (09:00)
== END 2017-11-26 16:36 | disposition home health service (06) ==
LOC: NEPC 08:17 → NEDA 12:39 → N05 15:53
PROVIDERS: ADMIT Hospitalist; ATTEND Hospitalist
PROC: ORIFANK (2017-11-22 10:22)